=== PATIENT | female | born 1965 | race Hispanic/Latino ===

== ENCOUNTER 2017-05-02 12:23 | Emergency (ER) | payer MEDICAID ==
[~2017-05-02 12:23] MED LIST: ASPI-1005 PO; BACL10TA PO; FURO20TA4 PO; GLIP10TA9 PO; HYDR-4068 PO; LACT10SO PO; LISI10TA7 PO; METF10004 PO; METO-391 PO; PIOG45TA17 PO; PRAV40TA3 PO; TICA90TA PO
[2017-09-14] MEDS ORDERED: LEVO500T89 PO (10:08)
[2017-09-14] MEDS ORDERED: SULF1TAB42 PO (10:08)
[2017-09-14] MEDS ORDERED: GABA-318 PO (10:09)
== END 2017-05-02 13:18 | disposition home or self-care (01) ==
LOC: EDH 12:23
DX: T46.4X1A Poisoning by angiotensin-converting-enzyme inhibitors, accidental (unintentional), initial encounter (principal); I10 Essential (primary) hypertension; M19.90 Unspecified osteoarthritis, unspecified site; E11.9 Type 2 diabetes mellitus without complications; Z88.6 Allergy status to analgesic agent; Z88.0 Allergy status to penicillin; Z79.899 Other long term (current) drug therapy; Y92.89 Other specified places as the place of occurrence of the external cause

== ENCOUNTER → 2017-08-25 | Outpatient (CLI) | payer MEDICAID ==
[~2017-08-25] MED LIST changes: +GABA-318 PO; +LEVO500T89 PO; -PIOG45TA17 PO; +PIOG45TA64 PO; +SULF1TAB42 PO
[2017-08-25 13:02] LABS: CREATININE 0.8 mg/dL (0.5-1.5); GLOMERULAR FILTR. RATE CALC 80 mL/min (>60); UREA NITROGEN, BLOOD 8 mg/dL (7-18)
[2017-08-25 13:23] LABS: CRP QUANTITATIVE < 2.00 mg/L (0.00-9.0)
[2017-08-25 13:29] VITALS: BP 136/73
== END | disposition home or self-care (01) ==
LOC: WHH 10:00
PROVIDERS: ATTEND Surgery
DX: E11.69 Type 2 diabetes mellitus with other specified complication (principal); M86.171 Other acute osteomyelitis, right ankle and foot; I10 Essential (primary) hypertension; E11.51 Type 2 diabetes mellitus with diabetic peripheral angiopathy without gangrene; M19.90 Unspecified osteoarthritis, unspecified site; E78.5 Hyperlipidemia, unspecified
CPT/HCPCS: 36415; 82565; 82948; 84520; 85651; 86140; 99205

== ENCOUNTER → 2017-09-08 | Outpatient (CLI) | payer MEDICAID ==
[2017-09-08 13:01] VITALS: BP 176/77
== END | disposition home or self-care (01) ==
LOC: WHH 09:15
PROVIDERS: ATTEND Surgery
DX: E11.69 Type 2 diabetes mellitus with other specified complication (principal); M86.171 Other acute osteomyelitis, right ankle and foot; I10 Essential (primary) hypertension; E11.51 Type 2 diabetes mellitus with diabetic peripheral angiopathy without gangrene; M19.90 Unspecified osteoarthritis, unspecified site; E78.5 Hyperlipidemia, unspecified
CPT/HCPCS: 82948; 99214

== ENCOUNTER 2017-09-22 05:57 | Day surgery (SDC) | payer MEDICAID ==
[2017-09-14 09:05] LABS: BASOPHILS % (AUTO) 0.6 % (0.0-5.0); HEMATOCRIT 36.1 % (36-48); LYMPHOCYTES % (AUTO) 30.4 % (21.0-51.0); MEAN CORPUSCULAR HEMOGLOBIN 32.6 pg (27.0-33.0); MEAN CORPUSCULAR HGB CONC 35.1 g/dL (32.0-36.0); MEAN CORPUSCULAR VOLUME 92.8 fL (79-99); NUCLEATED RED BLOOD CELLS 0.1 % (0.0-0.19); PLATELET COUNT (AUTO) 220 K/uL (130-400); RED BLOOD CELL COUNT(AUTO) 3.89 MIL/uL (4.00-5.50); RED CELL DISTRIBUTION WIDTH 13.9 % (11.0-15.5); WHITE BLOOD COUNT (AUTO) 6.6 K/uL (4.8-10.8)
[2017-09-14 09:14] LABS: POTASSIUM 4.7 mmol/L (3.5-5.1)
[2017-09-14 09:28] LABS: APPEARANCE,URINE Clear (CLEAR); BILIRUBIN,URINE Negative (NEGATIVE); COLOR,URINE Yellow (YELLOW); GLUCOSE, URINE (UA) Negative (NEGATIVE); INR 1.02 (0.85-1.15); KETONES,URINE Negative (NEGATIVE); LEUKOCYTE ESTERASE ,URINE Negative (NEGATIVE); NITRATE,URINE Negative (NEGATIVE); OCCULT BLOOD,URINE Negative (NEGATIVE); PARTIAL THROMBOPLASTIN TIME 26.4 SEC (26.3-35.5); PH,URINE 6.5 (5.0-8.0); PROTEIN,URINE Trace (NEGATIVE); PROTHROMBIN TIME 10.7 SEC (9.6-11.6); UROBILINOGEN,URINE 0.2 mg/dL (0.2-1.0)
[2017-09-14 09:45] VITALS: BP 160/82
[~2017-09-22] VITALS: Ht 149.9 cm; Wt 58.2 kg
[2017-09-22] VITALS (21 sets, daily range): BP systolic 121–179; BP diastolic 45–89
[~2017-09-22 05:57] MED LIST changes: -BACL10TA PO; -FURO20TA4 PO; -GLIP10TA9 PO; -LACT10SO PO; -METO-391 PO; -PIOG45TA64 PO; +SODIUM CHLORIDE 0.9% 1000ML 0 ML IV ONE
[2017-09-22] MEDS ORDERED: LIDOCAINE HCL 2% 20ML ONE (07:17)
[2017-09-22] MEDS ORDERED: NITROGLYCERIN 5 MG/ML 10 ML VIAL IV ONE (07:17)
[2017-09-22] MEDS ORDERED: ISOVUE-300 100 ML VIAL IV ONE (07:17)
[2017-09-22] MEDS ORDERED: HEPARIN SODIUM 1000UNIT/ML 10ML VIAL ONE (07:17)
[2017-09-22] MEDS ORDERED: SODIUM CHLORIDE 0.9% 1000ML 1,000 ML IV ONE (07:43)
[2017-09-22] MEDS ORDERED: MIDAZOLAM HCL 1 MG/ML 2ML VIAL ONE (07:48)
[2017-09-22] MEDS ORDERED: FENTANYL CITRATE PF 50 MCG/1 ML 2ML VIAL ONE (07:48)
[2017-09-22] MEDS ORDERED: LABETALOL HCL 5 MG/ML 20ML VIAL IV ONE (08:15)
[2017-09-22] MEDS ORDERED: PROTAMINE SULFATE 10 MG/ML 25ML VIAL IV ONE (09:14)
[2017-09-22] MEDS ORDERED: SODIUM CHLORIDE 0.9% 1000ML 1,000 ML IV SCH (09:16)
[2017-09-22] MEDS ORDERED: HYDRALAZINE HCL 20 MG/ML VIAL IV PRN (09:30)
[2017-09-22] MEDS ORDERED: METOPROLOL TARTRATE 1 MG/ML 5ML VIAL IV PRN (09:30)
[2017-09-22] MEDS ORDERED: GLUCAGON 1MG KIT 1 MG ML IM PRN (09:30)
[2017-09-22] MEDS ORDERED: DEXTROSE 50%-WATER 50 ML DISP.SYRIN IV PRN (09:30)
[2017-09-22] MEDS ORDERED: NITROGLYCERIN 0.4 MG SL TAB SL PRN (09:30)
[2017-09-22] MEDS ORDERED: INSULIN HUMULIN R 100 UNIT/ML 3ML SQ SCH (11:30)
[2017-09-22] MEDS ORDERED: ACETAMINOPHEN 325 MG TAB ONE (11:36)
[2017-09-22] MEDS ORDERED: TICAGRELOR 90 MG TABLET PO SCH (21:00)
== END 2017-09-22 15:30 | disposition home or self-care (01) ==
LOC: DAH 05:57
PROVIDERS: ATTEND Internal Medicine Cardiovascular Disease
DX: I70.213 Atherosclerosis of native arteries of extremities with intermittent claudication, bilateral legs (principal); I25.10 Atherosclerotic heart disease of native coronary artery without angina pectoris; J44.9 Chronic obstructive pulmonary disease, unspecified; E11.40 Type 2 diabetes mellitus with diabetic neuropathy, unspecified; I10 Essential (primary) hypertension; Z95.5 Presence of coronary angioplasty implant and graft; M19.90 Unspecified osteoarthritis, unspecified site; Z90.49 Acquired absence of other specified parts of digestive tract
CPT/HCPCS: 36415; 37221; 37226; 71045; 75625; 75710; 75774; 80048; 81003; 82948 ×2; 85025; 85347; 85610; 85730; 93005; A4606; C1725 ×2; C1769 ×2; C1876 ×2; C1887; C1893; C1894 ×2; J0360; J1644; J2720; J3490 ×3; J7030; Q9967; 37223; 75716; J2250; J3010

== ENCOUNTER 2018-05-04 21:55 | Inpatient (IN) | payer MEDICAID | END 2018-05-20 16:44 | LOC: EDH 21:55 → 2CH 21:56 → 2BH 05-07 16:40 → 2DH 05-17 15:12 → 2CV 05-05 11:44 | PROC: 4A023N7 Measurement of Cardiac Sampling and Pressure, Left Heart, Percutaneous Approach (ICD-10-PCS; principal; 2018-05-05 10:25) | PROC: B2111ZZ Fluoroscopy of Multiple Coronary Arteries using Low Osmolar Contrast (ICD-10-PCS; 2018-05-05 10:25) | PROC: 5A02210 Assistance with Cardiac Output using Balloon Pump, Continuous (ICD-10-PCS; 2018-05-05 10:25) | PROC: B2151ZZ Fluoroscopy of Left Heart using Low Osmolar Contrast (ICD-10-PCS; 2018-05-05 10:25) | PROC: 02100Z9 Bypass Coronary Artery, One Artery from Left Internal Mammary, Open Approach (ICD-10-PCS; 2018-05-05 10:25) | PROC: 021109W Bypass Coronary Artery, Two Arteries from Aorta with Autologous Venous Tissue, Open Approach (ICD-10-PCS; 2018-05-05 10:25) | PROC: 06BQ4ZZ Excision of Left Saphenous Vein, Percutaneous Endoscopic Approach (ICD-10-PCS; 2018-05-05 10:25) | DX: I21.4 Non-ST elevation (NSTEMI) myocardial infarction (principal); J96.00 Acute respiratory failure, unspecified whether with hypoxia or hypercapnia; I50.23 Acute on chronic systolic (congestive) heart failure; N17.9 Acute kidney failure, unspecified; E11.22 Type 2 diabetes mellitus with diabetic chronic kidney disease; E11.51 Type 2 diabetes mellitus with diabetic peripheral angiopathy without gangrene; E66.01 Morbid (severe) obesity due to excess calories; E78.5 Hyperlipidemia, unspecified; F17.200 Nicotine dependence, unspecified, uncomplicated; I12.9 Hypertensive chronic kidney disease with stage 1 through stage 4 chronic kidney disease, or unspecified chronic kidney disease; N18.9 Chronic kidney disease, unspecified; D62 Acute posthemorrhagic anemia ==

== ENCOUNTER 2018-05-30 10:03 | Inpatient (IN) | payer MEDICAID | END 2018-06-02 19:00 | disposition home or self-care (01) | LOC: EDH 10:03 → EDHIP 10:04 → 2DH 05-31 16:33 | DX: I25.10 Atherosclerotic heart disease of native coronary artery without angina pectoris (principal); I50.23 Acute on chronic systolic (congestive) heart failure; E11.22 Type 2 diabetes mellitus with diabetic chronic kidney disease; E11.51 Type 2 diabetes mellitus with diabetic peripheral angiopathy without gangrene; I13.0 Hypertensive heart and chronic kidney disease with heart failure and stage 1 through stage 4 chronic kidney disease, or unspecified chronic kidney disease; Z86.74 Personal history of sudden cardiac arrest; E83.42 Hypomagnesemia; Z95.1 Presence of aortocoronary bypass graft; I69.351 Hemiplegia and hemiparesis following cerebral infarction affecting right dominant side; R53.81 Other malaise; R79.1 Abnormal coagulation profile; N18.9 Chronic kidney disease, unspecified; Z72.0 Tobacco use ==

== ENCOUNTER 2018-12-04 13:13 | Emergency (ER) | payer MEDICAID ==
[~2018-12-04 13:13] MED LIST changes: +AEC81 PO; -ASPI-1005 PO; +ATOR10 PO; +CARV3.12 PO; +CLOP75TA32 PO; +DOXY100C40 PO; +FURO40TA7 PO; -GABA-318 PO; +GABA600T10 PO; +ISOS60TA4 PO; -LEVO500T89 PO; -LISI10TA7 PO; +MAGN400T53 PO; -METF10004 PO; +Nitroglycerin 0.4MG Sl Tab SL; +POTA10CA44 PO; -PRAV40TA3 PO; -SODIUM CHLORIDE 0.9% 1000ML 0 ML IV ONE; +SPIR25TA6 PO; -SULF1TAB42 PO
== END 2018-12-04 14:45 | disposition home or self-care (01) ==
LOC: EDH 13:13
DX: M85.632 Other cyst of bone, left forearm (principal); E11.9 Type 2 diabetes mellitus without complications; I10 Essential (primary) hypertension; M19.90 Unspecified osteoarthritis, unspecified site; E78.5 Hyperlipidemia, unspecified; Z95.1 Presence of aortocoronary bypass graft; Z90.49 Acquired absence of other specified parts of digestive tract; Z98.890 Other specified postprocedural states; Z87.891 Personal history of nicotine dependence; Z88.0 Allergy status to penicillin; Z88.6 Allergy status to analgesic agent; Z88.5 Allergy status to narcotic agent; Z90.710 Acquired absence of both cervix and uterus

== ENCOUNTER 2020-09-06 21:54 | Inpatient (IN) | payer MEDICAID ==
[~2020-09-06] VITALS: Ht 149.9 cm; Wt 63.0 kg
[~2020-09-06 21:54] MED LIST changes: -ISOS60TA4 PO; +ISOS60TA77 PO
[2020-09-06] MEDS ORDERED: METOCLOPRAMIDE 10 MG/2 ML VIAL ONE (22:21)
[2020-09-06] MEDS ORDERED: FUROSEMIDE 10 MG/ML 4ML VIAL ONE (22:22)
[2020-09-06] MEDS ORDERED: FAMOTIDINE/PF 20 MG/2 ML VIAL IV ONE (22:22)
[2020-09-06] MEDS ORDERED: ONDANSETRON HCL 4 MG/2 ML VIAL ONE (22:22)
[2020-09-06 22:31] LABS: ABG BASE EXCESS -4.3 mmol/L (-2.0-3.0); ABG HCO3 19.1 mmol/L (21.0-28.0); ABG OXYGEN SATURATION 97.1 % (95.0-99.0); ABG PCO2 31 mmHg (32-45)
[2020-09-06 22:56] LABS: BASOPHILS % (AUTO) 0.7 % (0.0-5.0); EOSINOPHILS % (AUTO) 1.5 % (0.0-8.0); HEMATOCRIT 34.7 % (36-48); LYMPHOCYTES % (AUTO) 15.3 % (21.0-51.0); MEAN CORPUSCULAR HEMOGLOBIN 24.2 pg (27.0-33.0); MEAN CORPUSCULAR VOLUME 80.7 fL (79-99); MONOCYTES % (AUTO) 5.6 % (3.0-13.0); NEUTROPHILS % (AUTO) 76.6 % (40.0-77.0); PLATELET COUNT (AUTO) 263 K/uL (130-400); RED CELL DISTRIBUTION WIDTH 24.1 % (11.0-15.5); WHITE BLOOD COUNT (AUTO) 7.5 K/uL (4.8-10.8)
[2020-09-06 23:08] LABS: CARBON DIOXIDE 22 mmol/L (21-32); CHLORIDE 109 mmol/L (101-111); GLOMERULAR FILTR. RATE CALC 61 mL/min (>60); GLUCOSE,RANDOM 66 mg/dL (70-105); POTASSIUM 4.1 mmol/L (3.5-5.1); SODIUM SERUM 144 mmol/L (136-145); UREA NITROGEN, BLOOD 18 mg/dL (7-18)
[2020-09-06 23:13] LABS: ALANINE AMINOTRANSFERASE 6 U/L (12-78); ALBUMIN 3.1 g/dL (3.5-5.0); ASPARTATE AMINOTRANSFERASE 20 U/L (10-37); BILIRUBIN,TOTAL 1.2 mg/dL (0.2-1.0); CREATINE KINASE, TOTAL 61 U/L (21-232); TOTAL PROTEIN, SERUM 7.9 g/dL (6.0-8.3)
[2020-09-06 23:14] LABS: LIPASE < 50 U/L (114-286)
[2020-09-06 23:23] LABS: B-TYPE NATRIURETIC PEPTIDE > 5000 pg/mL (0-100)
[2020-09-07] MEDS ORDERED: FUROSEMIDE 10 MG/ML 4ML VIAL ONE (00:02)
[2020-09-07] MEDS ORDERED: DEXTROSE 50%-WATER 50 ML DISP.SYRIN IV ONE ×2 (00:03→04:39)
[2020-09-07 00:12] LABS: INR 1.37 (0.85-1.15); PROTHROMBIN TIME 14.5 SEC (9.6-11.6)
[2020-09-07 00:13] LABS: PARTIAL THROMBOPLASTIN TIME 25.8 SEC (26.3-35.5)
[2020-09-07 00:31] LABS: APPEARANCE,URINE Clear (CLEAR); BILIRUBIN,URINE Negative (NEGATIVE); COLOR,URINE Yellow (YELLOW); GLUCOSE, URINE (UA) 500 mg/dL (NEGATIVE); KETONES,URINE Negative (NEGATIVE); LEUKOCYTE ESTERASE ,URINE Negative (NEGATIVE); NITRATE,URINE Negative (NEGATIVE); OCCULT BLOOD,URINE Small (NEGATIVE); PH,URINE 6.5 (5.0-8.0); PROTEIN,URINE Negative (NEGATIVE); UROBILINOGEN,URINE 0.2 mg/dL (0.2-1.0)
[2020-09-07 00:38] LABS: BACTERIA,URINE None Seen /HPF (None Seen); RBC,URINE 0-1 /HPF (0-1); SQUAMOUS EPITHELIAL CELL,UR Moderate /HPF (0-2); WBC,URINE None Seen /HPF (0-1)
[2020-09-07] MEDS ORDERED: DEXTROSE 10%-WATER 1,000 ML IV ONE ×2 (00:58→17:51)
[2020-09-07] MEDS ORDERED: ONDANSETRON HCL 4 MG/2 ML VIAL IV PRN (01:15)
[2020-09-07] MEDS ORDERED: POTASSIUM CHLORIDE 20MEQ/100ML 100 ML IV PRN (01:15)
[2020-09-07] MEDS ORDERED: LIDOCAINE HCL-MPF 1% 2ML VIAL IV PRN (01:15)
[2020-09-07] MEDS ORDERED: GLUCAGON 1MG KIT 1 MG ML IM PRN (01:15)
[2020-09-07] MEDS: FUROSEMIDE 10 MG/ML 4ML VIAL IV SCH ×3 (01:15→17:26)
[2020-09-07 06:49] VITALS: BP 137/67
[2020-09-07] MEDS ORDERED: TORS100T16 PO (07:12)
[2020-09-07] MEDS ORDERED: ONDA-104 PO (07:12)
[2020-09-07] MEDS ORDERED: ATOR20TA65 PO (07:12)
[2020-09-07] MEDS ORDERED: ALBUTEROL INHALER PO (07:12)
[2020-09-07] MEDS ORDERED: TICA60TA PO ×2 (07:12)
[2020-09-07] MEDS ORDERED: ISOS30TA92 PO (07:12)
[2020-09-07] MEDS ORDERED: SACU1TAB PO (07:12)
[2020-09-07] MEDS ORDERED: GABA-529 PO (07:12)
[2020-09-07] MEDS ORDERED: EMPA25TA PO (07:12)
[2020-09-07] MEDS ORDERED: AEC81 PO (07:12)
[2020-09-07] MEDS ORDERED: CARV3.12 PO (07:12)
[2020-09-07] MEDS ORDERED: METF-446 PO (07:12)
[2020-09-07 08:10] LABS: HEMATOCRIT 30.8 % (36-48); MEAN CORPUSCULAR HEMOGLOBIN 24.3 pg (27.0-33.0); MEAN CORPUSCULAR HGB CONC 29.9 g/dL (32.0-36.0); MEAN CORPUSCULAR VOLUME 81.5 fL (79-99); PLATELET COUNT (AUTO) 239 K/uL (130-400); RED BLOOD CELL COUNT(AUTO) 3.78 MIL/uL (4.00-5.50); RED CELL DISTRIBUTION WIDTH 23.9 % (11.0-15.5)
[2020-09-07 08:31] VITALS: BP 137/71
[2020-09-07 08:42] LABS: ALBUMIN 2.8 g/dL (3.5-5.0); CREATININE 1.1 mg/dL (0.5-1.5); POTASSIUM 4.1 mmol/L (3.5-5.1); THYROID STIMULATING HORMONE 1.86 uIU/mL (0.36-3.74); TOTAL PROTEIN, SERUM 7.2 g/dL (6.0-8.3)
[2020-09-07 09:06] LABS: B-TYPE NATRIURETIC PEPTIDE > 5000 pg/mL (0-100)
[2020-09-07] MEDS: FAMOTIDINE/PF 20 MG/2 ML VIAL IV SCH ×2 (11:08→22:32)
[2020-09-07 12:23] VITALS: BP 142/80
[2020-09-07] MEDS ORDERED: HYDROMORPHONE 1 MG/1 ML AMP IVP PRN (16:15)
[2020-09-07] MEDS: HYDROMORPHONE HCL 0.5 MG/0.5 ML ML IVP PRN ×2 (16:26→22:30)
[2020-09-07 16:45] VITALS: BP 127/76
[2020-09-07] MEDS ORDERED: DEXTROSE 10%-WATER 1,000 ML IV SCH (18:00)
[2020-09-07 20:21] VITALS: BP 128/63
[2020-09-07] MEDS: TICAGRELOR PO SCH (21:00)
[2020-09-07] MEDS: GABAPENTIN 300 MG CAPSULE PO SCH (22:33)
[2020-09-07] MEDS: CARVEDILOL 3.125 MG TABLET PO SCH (22:36)
[2020-09-07 23:35] VITALS: BP 127/79
[2020-09-08] MEDS: FUROSEMIDE 10 MG/ML 4ML VIAL IV SCH ×2 (02:35→09:12)
[2020-09-08 04:05] VITALS: BP 140/73
[2020-09-08 04:52] LABS: CREATININE 0.9 mg/dL (0.5-1.5); POTASSIUM 4.5 mmol/L (3.5-5.1)
[2020-09-08] MEDS: HYDROMORPHONE HCL 0.5 MG/0.5 ML ML IVP PRN ×4 (05:40→20:26)
[2020-09-08 05:52] LABS: BASOPHILS % (AUTO) 0.4 % (0.0-5.0); HEMATOCRIT 32.2 % (36-48); MEAN CORPUSCULAR HEMOGLOBIN 25.3 pg (27.0-33.0); MEAN CORPUSCULAR HGB CONC 30.7 g/dL (32.0-36.0); MEAN CORPUSCULAR VOLUME 82.1 fL (79-99); MONOCYTES % (AUTO) 6.4 % (3.0-13.0); NEUTROPHILS % (AUTO) 71.8 % (40.0-77.0); PLATELET COUNT (AUTO) 207 K/uL (130-400); RED BLOOD CELL COUNT(AUTO) 3.92 MIL/uL (4.00-5.50); RED CELL DISTRIBUTION WIDTH 24.2 % (11.0-15.5); WHITE BLOOD COUNT (AUTO) 7.2 K/uL (4.8-10.8)
[2020-09-08 06:11] LABS: B-TYPE NATRIURETIC PEPTIDE > 5000 pg/mL (0-100)
[2020-09-08 08:00] VITALS: BP 132/65
[2020-09-08] MEDS: **HM**(Sacubitril/Valsartan (Entresto 24 mg-26 mg Tablet PO SCH (09:00)
[2020-09-08] MEDS: TICAGRELOR 60 MG PO SCH (09:00)
[2020-09-08] MEDS: DEXTROSE 50%-WATER 50 ML DISP.SYRIN IV PRN (09:12)
[2020-09-08] MEDS: CARVEDILOL 3.125 MG TABLET PO SCH ×2 (09:13→20:18)
[2020-09-08] MEDS: GABAPENTIN 300 MG CAPSULE PO SCH ×3 (09:13→20:17)
[2020-09-08] MEDS: ISOSORBIDE MONO 30MG TAB SR PO SCH (09:13)
[2020-09-08] MEDS: FAMOTIDINE/PF 20 MG/2 ML VIAL IV SCH ×2 (09:13→20:17)
[2020-09-08] MEDS: ASPIRIN 81 MG EC TAB PO SCH (09:14)
[2020-09-08] MEDS ORDERED: GABA600T10 PO (09:18)
[2020-09-08 11:55] VITALS: BP 122/67
[2020-09-08 16:30] VITALS: BP 126/54
[2020-09-08] MEDS: TICAGRELOR PO SCH (20:34)
[2020-09-08 20:36] VITALS: BP 131/82
[2020-09-08 23:36] VITALS: BP 123/70
[2020-09-09] VITALS (16 sets, daily range): BP systolic 104–139; BP diastolic 55–68
[2020-09-09] MEDS: HYDROMORPHONE HCL 0.5 MG/0.5 ML ML IVP PRN (03:13)
[2020-09-09 06:21] LABS: BASOPHILS % (AUTO) 0.5 % (0.0-5.0); EOSINOPHILS % (AUTO) 4.1 % (0.0-8.0); HEMATOCRIT 30.3 % (36-48); LYMPHOCYTES % (AUTO) 19.8 % (21.0-51.0); MEAN CORPUSCULAR HEMOGLOBIN 24.7 pg (27.0-33.0); MEAN CORPUSCULAR HGB CONC 30.7 g/dL (32.0-36.0); MEAN CORPUSCULAR VOLUME 80.4 fL (79-99); MONOCYTES % (AUTO) 9.3 % (3.0-13.0); NEUTROPHILS % (AUTO) 66.1 % (40.0-77.0); PLATELET COUNT (AUTO) 205 K/uL (130-400); RED BLOOD CELL COUNT(AUTO) 3.77 MIL/uL (4.00-5.50); RED CELL DISTRIBUTION WIDTH 24.1 % (11.0-15.5); WHITE BLOOD COUNT (AUTO) 5.8 K/uL (4.8-10.8)
[2020-09-09 06:41] LABS: CREATININE 0.9 mg/dL (0.5-1.5); POTASSIUM 3.2 mmol/L (3.5-5.1)
[2020-09-09 06:49] LABS: B-TYPE NATRIURETIC PEPTIDE > 5000 pg/mL (0-100)
[2020-09-09] MEDS: ASPIRIN 81 MG EC TAB PO SCH (08:12)
[2020-09-09] MEDS: FAMOTIDINE/PF 20 MG/2 ML VIAL IV SCH ×2 (08:12→21:02)
[2020-09-09] MEDS: FUROSEMIDE 10 MG/ML 4ML VIAL IV SCH ×2 (08:12→15:11)
[2020-09-09] MEDS: ACETAMINOPHEN 325 MG TAB PO PRN ×3 (08:13→21:04)
[2020-09-09] MEDS: CARVEDILOL 3.125 MG TABLET PO SCH ×2 (08:14→21:02)
[2020-09-09] MEDS: **HM**(Sacubitril/Valsartan (Entresto 24 mg-26 mg Tablet PO SCH (08:14)
[2020-09-09] MEDS: TICAGRELOR 60 MG PO SCH (08:14)
[2020-09-09] MEDS: GABAPENTIN 300 MG CAPSULE PO SCH ×3 (08:16→21:01)
[2020-09-09] MEDS: ISOSORBIDE MONO 30MG TAB SR PO SCH (08:23)
[2020-09-09] MEDS: ENTRESTO PO SCH ×2 (09:15→21:10)
[2020-09-09] MEDS: SOD FERRIC GLUC COMPLEX/SUC 125 MG in SODIUM CHLORIDE 0.9% 100 ML IV SCH (11:21)
[2020-09-09] MEDS ORDERED: PROPOFOL 10 MG/ML 20ML VIAL IV ONE ×2 (11:53)
[2020-09-09] MEDS ORDERED: COMPOUND IV MISC 1 EACH IVSOLN MISC PRN (12:00)
[2020-09-09] MEDS ORDERED: MORPHINE SULFATE 2 MG/ML 1ML SYG ONE (13:25)
[2020-09-09] MEDS: DEXTROSE 50%-WATER 50 ML DISP.SYRIN IV PRN (16:44)
[2020-09-09] MEDS: TICAGRELOR PO SCH (21:04)
[2020-09-10 03:47] VITALS: BP 126/62
[2020-09-10 03:52] LABS: BASOPHILS % (AUTO) 0.3 % (0.0-5.0); EOSINOPHILS % (AUTO) 3.6 % (0.0-8.0); HEMATOCRIT 31.4 % (36-48); MEAN CORPUSCULAR HEMOGLOBIN 24.7 pg (27.0-33.0); MEAN CORPUSCULAR HGB CONC 30.6 g/dL (32.0-36.0); MEAN CORPUSCULAR VOLUME 80.9 fL (79-99); MONOCYTES % (AUTO) 6.5 % (3.0-13.0); NEUTROPHILS % (AUTO) 71.1 % (40.0-77.0); PLATELET COUNT (AUTO) 189 K/uL (130-400); RED BLOOD CELL COUNT(AUTO) 3.88 MIL/uL (4.00-5.50); RED CELL DISTRIBUTION WIDTH 24.9 % (11.0-15.5); WHITE BLOOD COUNT (AUTO) 6.3 K/uL (4.8-10.8)
[2020-09-10 04:20] LABS: CREATININE 0.9 mg/dL (0.5-1.5)
[2020-09-10 04:22] LABS: B-TYPE NATRIURETIC PEPTIDE > 5000 pg/mL (0-100)
[2020-09-10] MEDS: FUROSEMIDE 10 MG/ML 4ML VIAL IV SCH ×3 (05:49→15:40)
[2020-09-10] MEDS: ACETAMINOPHEN 325 MG TAB PO PRN ×2 (05:49→12:14)
[2020-09-10 08:15] VITALS: BP 122/70
[2020-09-10] MEDS: ENTRESTO PO SCH ×3 (09:00→20:28)
[2020-09-10] MEDS: TICAGRELOR 60 MG PO SCH (09:00)
[2020-09-10] MEDS: GABAPENTIN 300 MG CAPSULE PO SCH ×3 (09:41→20:32)
[2020-09-10] MEDS: ISOSORBIDE MONO 30MG TAB SR PO SCH (09:41)
[2020-09-10] MEDS: ASPIRIN 81 MG EC TAB PO SCH (09:41)
[2020-09-10] MEDS: CARVEDILOL 3.125 MG TABLET PO SCH ×2 (09:42→20:22)
[2020-09-10] MEDS: POTASSIUM CHLORIDE 10% ELIXIR 20 MEQ/15 ML UDCUP PO PRN ×4 (09:42→16:52)
[2020-09-10] MEDS: SOD FERRIC GLUC COMPLEX/SUC 125 MG in SODIUM CHLORIDE 0.9% 100 ML IV SCH (09:43)
[2020-09-10] MEDS: TICAGRELOR PO SCH (09:57)
[2020-09-10] MEDS: FAMOTIDINE 20MG TAB 20 MG TAB PO SCH ×2 (10:41→20:22)
[2020-09-10 12:17] VITALS: BP 119/62
[2020-09-10 16:30] VITALS: BP 117/65
[2020-09-10 16:52] LABS: CREATININE 0.9 mg/dL (0.5-1.5); MAGNESIUM 1.1 mg/dL (1.80-2.40); POTASSIUM 3.9 mmol/L (3.5-5.1)
[2020-09-10] MEDS: MAGNESIUM 2GM PREMIX 50ML 50 ML IV PRN (18:03)
[2020-09-10 19:17] VITALS: BP 117/60
[2020-09-10 23:54] VITALS: BP 95/51
[2020-09-11] MEDS: FUROSEMIDE 10 MG/ML 4ML VIAL IV SCH ×3 (00:48→21:26)
[2020-09-11 03:11] VITALS: BP 103/57
[2020-09-11 06:16] LABS: CREATININE 0.8 mg/dL (0.5-1.5); MAGNESIUM 1.8 mg/dL (1.80-2.40); POTASSIUM 4.6 mmol/L (3.5-5.1)
[2020-09-11] MEDS: MAGNESIUM 2GM PREMIX 50ML 50 ML IV PRN (06:31)
[2020-09-11 06:44] LABS: BASOPHILS % (AUTO) 0.3 % (0.0-5.0); EOSINOPHILS % (AUTO) 4.4 % (0.0-8.0); HEMATOCRIT 34.8 % (36-48); LYMPHOCYTES % (AUTO) 25.7 % (21.0-51.0); MEAN CORPUSCULAR HEMOGLOBIN 24.9 pg (27.0-33.0); MEAN CORPUSCULAR HGB CONC 30.5 g/dL (32.0-36.0); MEAN CORPUSCULAR VOLUME 81.9 fL (79-99); MONOCYTES % (AUTO) 9.1 % (3.0-13.0); NEUTROPHILS % (AUTO) 60.3 % (40.0-77.0); PLATELET COUNT (AUTO) 208 K/uL (130-400); RED BLOOD CELL COUNT(AUTO) 4.25 MIL/uL (4.00-5.50); RED CELL DISTRIBUTION WIDTH 25.5 % (11.0-15.5); WHITE BLOOD COUNT (AUTO) 5.7 K/uL (4.8-10.8)
[2020-09-11] MEDS: ASPIRIN 81 MG EC TAB PO SCH (08:43)
[2020-09-11] MEDS: FAMOTIDINE 20MG TAB 20 MG TAB PO SCH ×2 (08:43→20:32)
[2020-09-11] MEDS: ISOSORBIDE MONO 30MG TAB SR PO SCH (08:43)
[2020-09-11 08:45] VITALS: BP 113/56
[2020-09-11] MEDS: CARVEDILOL 3.125 MG TABLET PO SCH ×2 (08:45→20:31)
[2020-09-11] MEDS: ENTRESTO PO SCH ×2 (08:46→20:46)
[2020-09-11] MEDS: TICAGRELOR 60 MG PO SCH (08:47)
[2020-09-11] MEDS: SOD FERRIC GLUC COMPLEX/SUC 125 MG in SODIUM CHLORIDE 0.9% 100 ML IV SCH (08:47)
[2020-09-11] MEDS: GABAPENTIN 300 MG CAPSULE PO SCH ×3 (08:48→20:46)
[2020-09-11 12:18] VITALS: BP 94/45
[2020-09-11] MEDS ORDERED: LEVOFLOXACIN 750 MG/D5W 150 ML 150 ML IV SCH (14:30)
[2020-09-11] MEDS ORDERED: FUROSEMIDE 10 MG/ML 4ML VIAL IV SCH (15:45)
[2020-09-11 16:59] VITALS: BP 107/55
[2020-09-11] MEDS ORDERED: FUROSEMIDE 40 MG TABLET PO SCH ×2 (17:00→18:00)
[2020-09-11] MEDS ORDERED: PHARMACY COMMUNICATION MISC SCH (18:45)
[2020-09-11 19:19] VITALS: BP 116/67
[2020-09-11] MEDS ORDERED: PEG 3350/NA SULF,BICARB,CL/KCL 4000 ML SOLN PO STA (19:59)
[2020-09-11] MEDS: LEVOFLOXACIN 750 MG/D5W 150 ML 150 ML IV SCH (20:31)
[2020-09-11] MEDS: ACETAMINOPHEN 325 MG TAB PO PRN (21:34)
[2020-09-11 23:12] VITALS: BP 114/59
[2020-09-12] VITALS (19 sets, daily range): BP systolic 94–143; BP diastolic 51–75
[2020-09-12] MEDS: FUROSEMIDE 10 MG/ML 4ML VIAL IV SCH (05:13)
[2020-09-12 05:17] LABS: BASOPHILS % (AUTO) 0.7 % (0.0-5.0); EOSINOPHILS % (AUTO) 5.1 % (0.0-8.0); HEMATOCRIT 32.5 % (36-48); LYMPHOCYTES % (AUTO) 22.9 % (21.0-51.0); MEAN CORPUSCULAR HEMOGLOBIN 24.9 pg (27.0-33.0); MEAN CORPUSCULAR HGB CONC 30.8 g/dL (32.0-36.0); MONOCYTES % (AUTO) 9.7 % (3.0-13.0); NEUTROPHILS % (AUTO) 61.4 % (40.0-77.0); PLATELET COUNT (AUTO) 207 K/uL (130-400); RED BLOOD CELL COUNT(AUTO) 4.01 MIL/uL (4.00-5.50); RED CELL DISTRIBUTION WIDTH 25.3 % (11.0-15.5); WHITE BLOOD COUNT (AUTO) 5.5 K/uL (4.8-10.8)
[2020-09-12 05:20] LABS: CREATININE 0.9 mg/dL (0.5-1.5); MAGNESIUM 1.9 mg/dL (1.80-2.40); POTASSIUM 3.5 mmol/L (3.5-5.1)
[2020-09-12 05:29] LABS: B-TYPE NATRIURETIC PEPTIDE > 5000 pg/mL (0-100)
[2020-09-12 05:32] LABS: INR 1.32 (0.85-1.15)
[2020-09-12] MEDS ORDERED: LIDOCAINE HCL-MPF 2% 5ML VIAL ONE (06:55)
[2020-09-12] MEDS ORDERED: PROPOFOL 10 MG/ML 20ML VIAL IV ONE (06:55)
[2020-09-12] MEDS: ASPIRIN 81 MG EC TAB PO SCH ×2 (09:00→09:31)
[2020-09-12] MEDS ORDERED: BUMETANIDE 0.25 MG/ML 10 ML 80 ML IV SCH (09:00)
[2020-09-12] MEDS: POTASSIUM CHLORIDE 10 MEQ/TAB.SA PO SCH ×2 (09:15→21:00)
[2020-09-12] MEDS: GABAPENTIN 300 MG CAPSULE PO SCH ×3 (09:30→20:57)
[2020-09-12] MEDS: MAGNESIUM 2GM PREMIX 50ML 50 ML IV PRN (09:30)
[2020-09-12] MEDS: FAMOTIDINE 20MG TAB 20 MG TAB PO SCH ×2 (09:30→20:58)
[2020-09-12] MEDS: CARVEDILOL 3.125 MG TABLET PO SCH ×2 (09:31→20:53)
[2020-09-12] MEDS: ISOSORBIDE MONO 30MG TAB SR PO SCH (09:31)
[2020-09-12] MEDS: SPIRONOLACTONE 25 MG TAB PO SCH (09:33)
[2020-09-12] MEDS: ENTRESTO PO SCH ×2 (09:40→20:57)
[2020-09-12] MEDS ORDERED: COMPOUND IV MISC 1 EACH IVSOLN MISC PRN (10:00)
[2020-09-12] MEDS: ACETAMINOPHEN 325 MG TAB PO PRN (12:25)
[2020-09-12] MEDS: MILRINONE-D5W 20 MG/100 ML 100 ML IV SCH (16:03)
[2020-09-12] MEDS: LEVOFLOXACIN 750 MG/D5W 150 ML 150 ML IV SCH (20:52)
[2020-09-13 04:08] VITALS: BP 105/58
[2020-09-13 06:22] LABS: BASOPHILS % (AUTO) 0.4 % (0.0-5.0); EOSINOPHILS % (AUTO) 4.3 % (0.0-8.0); HEMATOCRIT 27.8 % (36-48); LYMPHOCYTES % (AUTO) 23.3 % (21.0-51.0); MEAN CORPUSCULAR HEMOGLOBIN 24.7 pg (27.0-33.0); MEAN CORPUSCULAR HGB CONC 30.9 g/dL (32.0-36.0); MEAN CORPUSCULAR VOLUME 79.9 fL (79-99); MONOCYTES % (AUTO) 10.5 % (3.0-13.0); NEUTROPHILS % (AUTO) 61.3 % (40.0-77.0); PLATELET COUNT (AUTO) 207 K/uL (130-400); RED BLOOD CELL COUNT(AUTO) 3.48 MIL/uL (4.00-5.50); RED CELL DISTRIBUTION WIDTH 25.3 % (11.0-15.5); WHITE BLOOD COUNT (AUTO) 5.2 K/uL (4.8-10.8)
[2020-09-13 07:00] LABS: CREATININE 1.1 mg/dL (0.5-1.5); MAGNESIUM 2.2 mg/dL (1.80-2.40); POTASSIUM 3.4 mmol/L (3.5-5.1)
[2020-09-13 08:02] VITALS: BP 98/53
[2020-09-13] MEDS: SPIRONOLACTONE 25 MG TAB PO SCH (08:25)
[2020-09-13] MEDS: ASPIRIN 81 MG EC TAB PO SCH (08:26)
[2020-09-13] MEDS: ISOSORBIDE MONO 30MG TAB SR PO SCH (08:26)
[2020-09-13] MEDS: FAMOTIDINE 20MG TAB 20 MG TAB PO SCH ×2 (08:26→21:37)
[2020-09-13] MEDS: POTASSIUM CHLORIDE 20 MEQ ERTAB PO PRN (08:27)
[2020-09-13] MEDS: CARVEDILOL 3.125 MG TABLET PO SCH ×2 (08:27→21:40)
[2020-09-13] MEDS: ENTRESTO PO SCH ×2 (08:28→21:41)
[2020-09-13] MEDS: POTASSIUM CHLORIDE 10 MEQ/TAB.SA PO SCH ×2 (08:28→21:52)
[2020-09-13] MEDS: TICAGRELOR 60 MG PO SCH (08:28)
[2020-09-13] MEDS: GABAPENTIN 300 MG CAPSULE PO SCH ×3 (08:29→21:38)
[2020-09-13] MEDS ORDERED: DIGOXIN 125 MCG TABLET PO SCH (09:00)
[2020-09-13 12:06] VITALS: BP 90/48
[2020-09-13 13:46] LABS: ALBUMIN 2.4 g/dL (3.5-5.0); BILIRUBIN,DIRECT 0.2 mg/dL (0.0-0.3); BILIRUBIN,TOTAL 0.7 mg/dL (0.2-1.0); CREATININE 1.1 mg/dL (0.5-1.5); POTASSIUM 3.6 mmol/L (3.5-5.1); TOTAL PROTEIN, SERUM 6.4 g/dL (6.0-8.3)
[2020-09-13 16:00] VITALS: BP 117/60
[2020-09-13 20:00] VITALS: BP 120/68
[2020-09-13] MEDS: TICAGRELOR PO SCH (21:42)
[2020-09-13 23:33] VITALS: BP 100/55
[2020-09-14] MEDS: MILRINONE-D5W 20 MG/100 ML 100 ML IV SCH (01:58)
[2020-09-14] MEDS: ACETAMINOPHEN 325 MG TAB PO PRN ×2 (02:06→14:10)
[2020-09-14 03:38] VITALS: BP 104/55
[2020-09-14 05:49] LABS: CREATININE 1.2 mg/dL (0.5-1.5); MAGNESIUM 1.7 mg/dL (1.80-2.40); POTASSIUM 3.6 mmol/L (3.5-5.1)
[2020-09-14] MEDS: ENTRESTO PO SCH ×2 (07:52→21:26)
[2020-09-14] MEDS: TICAGRELOR 60 MG PO SCH (07:52)
[2020-09-14] MEDS: GABAPENTIN 300 MG CAPSULE PO SCH ×3 (07:52→21:22)
[2020-09-14 08:02] VITALS: BP 117/61
[2020-09-14] MEDS: ASPIRIN 81 MG EC TAB PO SCH (08:29)
[2020-09-14] MEDS: POTASSIUM CHLORIDE 10 MEQ/TAB.SA PO SCH ×2 (08:30→21:23)
[2020-09-14] MEDS: POTASSIUM CHLORIDE 20 MEQ ERTAB PO PRN ×2 (08:30→18:11)
[2020-09-14] MEDS: FAMOTIDINE 20MG TAB 20 MG TAB PO SCH ×2 (08:30→21:23)
[2020-09-14] MEDS: SPIRONOLACTONE 25 MG TAB PO SCH (08:31)
[2020-09-14] MEDS: CARVEDILOL 3.125 MG TABLET PO SCH ×2 (08:31→21:25)
[2020-09-14] MEDS: MAGNESIUM 2GM PREMIX 50ML 50 ML IV PRN (08:32)
[2020-09-14] MEDS: ISOSORBIDE MONO 30MG TAB SR PO SCH (08:32)
[2020-09-14] MEDS: IRON SUCROSE COMPLEX 100 MG in SODIUM CHLORIDE 0.9% 50 ML IV SCH (09:00)
[2020-09-14] MEDS ORDERED: COMPOUND IV REFRIGERATED 1 EACH IVSOLN MISC PRN (09:15)
[2020-09-14 11:24] VITALS: BP 119/69
[2020-09-14 12:45] LABS: BASOPHILS % (AUTO) 0.5 % (0.0-5.0); EOSINOPHILS % (AUTO) 4.7 % (0.0-8.0); HEMATOCRIT 32.1 % (36-48); LYMPHOCYTES % (AUTO) 20.2 % (21.0-51.0); MEAN CORPUSCULAR HEMOGLOBIN 24.9 pg (27.0-33.0); MEAN CORPUSCULAR HGB CONC 30.8 g/dL (32.0-36.0); MEAN CORPUSCULAR VOLUME 80.9 fL (79-99); MONOCYTES % (AUTO) 9.2 % (3.0-13.0); PLATELET COUNT (AUTO) 237 K/uL (130-400); RED BLOOD CELL COUNT(AUTO) 3.97 MIL/uL (4.00-5.50); RED CELL DISTRIBUTION WIDTH 25.9 % (11.0-15.5); WHITE BLOOD COUNT (AUTO) 5.6 K/uL (4.8-10.8)
[2020-09-14 16:00] VITALS: BP 109/59
[2020-09-14] MEDS: DIGOXIN 125 MCG TABLET PO SCH (18:11)
[2020-09-14 19:55] VITALS: BP 131/66
[2020-09-14] MEDS: LEVOFLOXACIN 750 MG TABLET PO SCH (21:24)
[2020-09-14] MEDS: TICAGRELOR PO SCH (21:27)
[2020-09-14 23:45] VITALS: BP 109/53
[2020-09-15 03:53] VITALS: BP 119/65
[2020-09-15 04:35] LABS: CREATININE 1.3 mg/dL (0.5-1.5); MAGNESIUM 1.9 mg/dL (1.80-2.40)
[2020-09-15 07:00] VITALS: BP 123/63
[2020-09-15] MEDS ORDERED: SPIR25TA PO (08:38)
[2020-09-15] MEDS ORDERED: SACU1TAB PO (08:38)
[2020-09-15] MEDS ORDERED: METO2.5T2 PO (08:38)
[2020-09-15] MEDS ORDERED: DIGO125T71 PO (08:38)
[2020-09-15] MEDS: ENTRESTO PO SCH ×2 (09:00→20:22)
[2020-09-15] MEDS: MAGNESIUM 2GM PREMIX 50ML 50 ML IV PRN (09:05)
[2020-09-15] MEDS: IRON SUCROSE COMPLEX 100 MG in SODIUM CHLORIDE 0.9% 50 ML IV SCH (09:05)
[2020-09-15] MEDS: ASPIRIN 81 MG EC TAB PO SCH (09:05)
[2020-09-15] MEDS: SPIRONOLACTONE 25 MG TAB PO SCH (09:06)
[2020-09-15] MEDS: ISOSORBIDE MONO 30MG TAB SR PO SCH (09:06)
[2020-09-15] MEDS: FAMOTIDINE 20MG TAB 20 MG TAB PO SCH ×2 (09:06→20:20)
[2020-09-15] MEDS: GABAPENTIN 300 MG CAPSULE PO SCH ×3 (09:06→21:00)
[2020-09-15] MEDS: CARVEDILOL 3.125 MG TABLET PO SCH ×2 (09:06→20:20)
[2020-09-15] MEDS: POTASSIUM CHLORIDE 10 MEQ/TAB.SA PO SCH ×2 (09:07→20:20)
[2020-09-15] MEDS: LEVOFLOXACIN 750 MG TABLET PO SCH (09:07)
[2020-09-15] MEDS: TICAGRELOR 60 MG PO SCH (09:08)
[2020-09-15] MEDS ORDERED: DEXTROSE 5%-WATER 1,000 ML IV SCH (09:45)
[2020-09-15 11:00] VITALS: BP 102/51
[2020-09-15 16:00] VITALS: BP 107/59
[2020-09-15] MEDS: DIGOXIN 125 MCG TABLET PO SCH (17:13)
[2020-09-15 19:07] VITALS: BP 112/60
[2020-09-15] MEDS: TICAGRELOR PO SCH (20:23)
[2020-09-15 23:40] VITALS: BP 108/60
[2020-09-16 03:54] VITALS: BP 115/58
[2020-09-16 05:23] LABS: BASOPHILS % (AUTO) 0.5 % (0.0-5.0); EOSINOPHILS % (AUTO) 5.2 % (0.0-8.0); HEMATOCRIT 31.5 % (36-48); LYMPHOCYTES % (AUTO) 22.1 % (21.0-51.0); MEAN CORPUSCULAR HEMOGLOBIN 24.8 pg (27.0-33.0); MEAN CORPUSCULAR HGB CONC 30.5 g/dL (32.0-36.0); MEAN CORPUSCULAR VOLUME 81.4 fL (79-99); MONOCYTES % (AUTO) 9.8 % (3.0-13.0); NEUTROPHILS % (AUTO) 61.9 % (40.0-77.0); PLATELET COUNT (AUTO) 210 K/uL (130-400); RED BLOOD CELL COUNT(AUTO) 3.87 MIL/uL (4.00-5.50); RED CELL DISTRIBUTION WIDTH 26.2 % (11.0-15.5); WHITE BLOOD COUNT (AUTO) 6.1 K/uL (4.8-10.8)
[2020-09-16 05:42] LABS: ALBUMIN 2.5 g/dL (3.5-5.0); BILIRUBIN,TOTAL 0.6 mg/dL (0.2-1.0); CREATININE 1.1 mg/dL (0.5-1.5); POTASSIUM 3.9 mmol/L (3.5-5.1); TOTAL PROTEIN, SERUM 6.8 g/dL (6.0-8.3)
[2020-09-16] MEDS ORDERED: LEVO750T46 PO (07:51)
[2020-09-16 08:00] VITALS: BP 115/60
[2020-09-16] MEDS: ENTRESTO PO SCH (09:00)
[2020-09-16] MEDS: IRON SUCROSE COMPLEX 100 MG in SODIUM CHLORIDE 0.9% 50 ML IV SCH (09:27)
[2020-09-16] MEDS: ASPIRIN 81 MG EC TAB PO SCH (09:28)
[2020-09-16] MEDS: SPIRONOLACTONE 25 MG TAB PO SCH (09:28)
[2020-09-16] MEDS: CARVEDILOL 3.125 MG TABLET PO SCH (09:29)
[2020-09-16] MEDS: TICAGRELOR 60 MG PO SCH (09:30)
[2020-09-16] MEDS: LEVOFLOXACIN 750 MG TABLET PO SCH (09:34)
[2020-09-16] MEDS: FAMOTIDINE 20MG TAB 20 MG TAB PO SCH (09:34)
[2020-09-16] MEDS: ISOSORBIDE MONO 30MG TAB SR PO SCH (09:34)
[2020-09-16] MEDS: GABAPENTIN 300 MG CAPSULE PO SCH ×2 (09:39→14:58)
[2020-09-16] MEDS: POTASSIUM CHLORIDE 10 MEQ/TAB.SA PO SCH (09:39)
[2020-09-16 12:00] VITALS: BP 107/60
[2020-09-16] MEDS ORDERED: BALSAM PERU/CASTOR OIL 60 GM TUBE TP SCH (14:00)
[2020-09-16] MEDS: ACETAMINOPHEN 325 MG TAB PO PRN (15:00)
[2020-09-16] MEDS: DIGOXIN 125 MCG TABLET PO SCH (16:35)
== END 2020-09-16 16:50 | disposition home or self-care (01) | DRG 133 ==
LOC: EDH 21:54 → OBSVTOIN 21:55 → EDHIP 21:55 → 4AH 09-07 06:19 → 4DH 09-08 17:54
PROVIDERS: ADMIT Internal Medicine; ATTEND Internal Medicine
PROC: 0DB68ZX Excision of Stomach, Via Natural or Artificial Opening Endoscopic, Diagnostic (ICD-10-PCS; 2020-09-09)
PROC: 0D758ZZ Dilation of Esophagus, Via Natural or Artificial Opening Endoscopic (ICD-10-PCS; 2020-09-09)
PROC: 0DBM8ZZ Excision of Descending Colon, Via Natural or Artificial Opening Endoscopic (ICD-10-PCS; principal; 2020-09-12)
PROC: 0DBP8ZZ Excision of Rectum, Via Natural or Artificial Opening Endoscopic (ICD-10-PCS; 2020-09-12)
PROC: 02HV33Z Insertion of Infusion Device into Superior Vena Cava, Percutaneous Approach (ICD-10-PCS; 2020-09-12)
DX: J96.01 Acute respiratory failure with hypoxia (principal); I50.43 Acute on chronic combined systolic (congestive) and diastolic (congestive) heart failure; E11.621 Type 2 diabetes mellitus with foot ulcer; E11.51 Type 2 diabetes mellitus with diabetic peripheral angiopathy without gangrene; E11.649 Type 2 diabetes mellitus with hypoglycemia without coma; D62 Acute posthemorrhagic anemia; I11.0 Hypertensive heart disease with heart failure; T87.89 Other complications of amputation stump; K57.32 Diverticulitis of large intestine without perforation or abscess without bleeding; E66.01 Morbid (severe) obesity due to excess calories; L03.116 Cellulitis of left lower limb; I25.5 Ischemic cardiomyopathy; K57.90 Diverticulosis of intestine, part unspecified, without perforation or abscess without bleeding; R13.10 Dysphagia, unspecified; R18.8 Other ascites; D50.9 Iron deficiency anemia, unspecified; B96.5 Pseudomonas (aeruginosa) (mallei) (pseudomallei) as the cause of diseases classified elsewhere; E11.69 Type 2 diabetes mellitus with other specified complication; E78.5 Hyperlipidemia, unspecified; G81.91 Hemiplegia, unspecified affecting right dominant side; G89.4 Chronic pain syndrome; I25.10 Atherosclerotic heart disease of native coronary artery without angina pectoris; J98.11 Atelectasis; K29.70 Gastritis, unspecified, without bleeding; K62.1 Rectal polyp; K63.5 Polyp of colon; K64.8 Other hemorrhoids; L97.529 Non-pressure chronic ulcer of other part of left foot with unspecified severity; M19.90 Unspecified osteoarthritis, unspecified site; M86.8X7 Other osteomyelitis, ankle and foot; Z20.822 Contact with and (suspected) exposure to COVID-19; R53.81 Other malaise; Y83.5 Amputation of limb(s) as the cause of abnormal reaction of the patient, or of later complication, without mention of misadventure at the time of the procedure; I25.2 Old myocardial infarction; Y92.89 Other specified places as the place of occurrence of the external cause; Z68.28 Body mass index [BMI] 28.0-28.9, adult; Z74.01 Bed confinement status; Z88.0 Allergy status to penicillin; Z88.8 Allergy status to other drugs, medicaments and biological substances; Z95.5 Presence of coronary angioplasty implant and graft; Z95.1 Presence of aortocoronary bypass graft; Z87.891 Personal history of nicotine dependence; Z89.412 Acquired absence of left great toe; Z79.899 Other long term (current) drug therapy; Z82.3 Family history of stroke; Z83.3 Family history of diabetes mellitus; Z82.5 Family history of asthma and other chronic lower respiratory diseases; Z82.49 Family history of ischemic heart disease and other diseases of the circulatory system
CPT/HCPCS: 36415; 36600; 43239; 43248; 45385; 71045; 73630; 74176; 74230; 80048; 80053; 80076; 81001; 82140; 82550; 82803; 82948; 83036; 83605; 83690; 83735; 83880; 84443; 84484; 85025; 85027; 85610; 85730; 87040; 87070; 87077; 87186; 87426; 87804; 92610; 92611; 93005; 93306; 93356; 93925; 93971; 97039; 99291; A6250; C1894; G0378; J1170; J1756; J1940; J1956; J2260; J2405; J2704; J2765; J2916; J3475; J3480; J3490; J7030; J7070; U0003

== ENCOUNTER 2021-01-19 15:18 | Inpatient (IN) | payer MEDICAID ==
[~2021-01-19] VITALS: Ht 149.9 cm; Wt 55.8 kg
[~2021-01-19 15:18] MED LIST changes: +ALBUTEROL INHALER PO; -ATOR10 PO; +ATOR20TA65 PO; -CLOP75TA32 PO; +DIGO125T71 PO; -DOXY100C40 PO; +EMPA25TA PO; -FURO40TA7 PO; -HYDR-4068 PO; +ISOS30TA92 PO; -ISOS60TA77 PO; +LEVO750T46 PO; -MAGN400T53 PO; +METF-446 PO; +METO2.5T2 PO; -Nitroglycerin 0.4MG Sl Tab SL; +ONDA-104 PO; -POTA10CA44 PO; +SACU1TAB PO; +SPIR25TA PO; -SPIR25TA6 PO; +TICA60TA PO; -TICA90TA PO; +TORS100T16 PO
[2021-01-19 15:19] VITALS: BP 88/49
[2021-01-19 15:57] VITALS: BP 116/50
[2021-01-19 16:11] LABS: BASOPHILS % (AUTO) 0.3 % (0.0-5.0); HEMATOCRIT 41.2 % (36-48); MEAN CORPUSCULAR HEMOGLOBIN 30.7 pg (27.0-33.0); MEAN CORPUSCULAR HGB CONC 33.3 g/dL (32.0-36.0); MEAN CORPUSCULAR VOLUME 92.4 fL (79-99); MONOCYTES % (AUTO) 5.4 % (3.0-13.0); NEUTROPHILS % (AUTO) 80.9 % (40.0-77.0); PLATELET COUNT (AUTO) 199 K/uL (130-400); RED BLOOD CELL COUNT(AUTO) 4.46 MIL/uL (4.00-5.50); RED CELL DISTRIBUTION WIDTH 13.7 % (11.0-15.5); WHITE BLOOD COUNT (AUTO) 9.4 K/uL (4.8-10.8)
[2021-01-19 16:24] LABS: ALBUMIN 4.1 g/dL (3.5-5.0); BILIRUBIN,TOTAL 0.9 mg/dL (0.2-1.0); CREATININE 5.5 mg/dL (0.5-1.5); MAGNESIUM 2.1 mg/dL (1.80-2.40); POTASSIUM 4.8 mmol/L (3.5-5.1); TOTAL PROTEIN, SERUM 8.9 g/dL (6.0-8.3)
[2021-01-19] MEDS ORDERED: [UNRECOGNIZED DRUG - OTHER] IV ONE (16:30)
[2021-01-19] MEDS: LEVOFLOXACIN 500 MG/D5W 100 ML 100 ML IV SCH ×2 (16:39→18:27)
[2021-01-19 16:55] LABS: B-TYPE NATRIURETIC PEPTIDE 1160 pg/mL (0-100)
[2021-01-19 17:15] LABS: ABG BASE EXCESS -6.2 mmol/L (-2.0-3.0); ABG HCO3 17.6 mmol/L (21.0-28.0); ABG OXYGEN SATURATION 90.1 % (95.0-99.0); ABG PCO2 31 mmHg (32-45)
[2021-01-19] MEDS ORDERED: MAG/ALUM/SIMETH 30 ML UDCUP PO PRN (19:30)
[2021-01-19] MEDS ORDERED: ONDANSETRON 4MG INJ IV PRN (19:30)
[2021-01-19] MEDS ORDERED: LACTULOSE 20 GM/30 ML UDCUP PO PRN (19:30)
[2021-01-19] MEDS ORDERED: NITROGLYCERIN 0.4 MG SL TAB SL PRN (19:30)
[2021-01-19] MEDS ORDERED: ACETAMINOPHEN 325 MG TAB PO PRN ×2 (19:30)
[2021-01-19 19:49] VITALS: BP 106/50
[2021-01-19 20:02] LABS: CHOLESTEROL 145 mg/dL (<200); HDL CHOLESTEROL 29 mg/dL (35-85); LDL DIRECT 62 mg/dL (0-99); TRIGLYCERIDES 356 mg/dL (30-200)
[2021-01-19 20:19] LABS: HEMOGLOBIN A1C 13.3 % (4.0-6.0)
[2021-01-19 20:50] LABS: APPEARANCE,URINE Clear (CLEAR); BILIRUBIN,URINE Negative (NEGATIVE); CHLORIDE,URINE RANDOM 101 mmol/L (110-250); COLOR,URINE Yellow (YELLOW); GLUCOSE, URINE (UA) 500 mg/dL (NEGATIVE); KETONES,URINE Negative (NEGATIVE); LEUKOCYTE ESTERASE ,URINE Small (NEGATIVE); NITRATE,URINE Negative (NEGATIVE); OCCULT BLOOD,URINE Negative (NEGATIVE); PH,URINE 5.5 (5.0-8.0); POTASSIUM,URINE RANDOM 10 mmol/L (25-125); PROTEIN,URINE Trace mg/dL (NEGATIVE); SODIUM,URINE RANDOM 100 mmol/l (40-220); UROBILINOGEN,URINE 0.2 mg/dL (0.2-1.0)
[2021-01-19 20:58] LABS: BACTERIA,URINE Rare /HPF (None Seen); MUCUS,URINE Rare LPF (None Seen); SQUAMOUS EPITHELIAL CELL,UR Rare /HPF (0-2)
[2021-01-19] MEDS ORDERED: MEPERIDINE-PF 25 MG/ML SYG IVP ONE (21:00)
[2021-01-19] MEDS: INSULIN GLARGINE 100 UNITS/ML 10 ML VIAL SQ SCH (21:15)
[2021-01-19] MEDS: INSULIN HUMULIN R 100 UNIT/ML 3ML SQ SCH (21:15)
[2021-01-19] MEDS: FAMOTIDINE 20MG TAB PO SCH (21:15)
[2021-01-20] VITALS (7 sets, daily range): BP systolic 107–130; BP diastolic 43–69
[2021-01-20] MEDS: INSULIN HUMULIN R 100 UNIT/ML 3ML SQ SCH ×7 (07:30→21:24)
[2021-01-20] MEDS: ENOXAPARIN SODIUM 40 MG/0.4 ML SYRINGE SQ SCH (08:21)
[2021-01-20 09:41] LABS: CREATININE 3.9 mg/dL (0.5-1.5); MAGNESIUM 1.8 mg/dL (1.80-2.40); POTASSIUM 4.1 mmol/L (3.5-5.1)
[2021-01-20 10:38] LABS: CREATININE,URINE RANDOM 19 mg/dL (30-135); SODIUM,URINE RANDOM 100 mmol/l (40-220)
[2021-01-20] MEDS: TICAGRELOR 90 MG TABLET PO SCH ×2 (11:30→21:14)
[2021-01-20] MEDS: ASPIRIN 81 MG EC TAB PO SCH (13:00)
[2021-01-20] MEDS ORDERED: ALBU90AE2 IH (17:18)
[2021-01-20] MEDS ORDERED: CARVEDILOL 3.125 MG TABLET PO SCH (21:00)
[2021-01-20] MEDS: FAMOTIDINE 20MG TAB PO SCH (21:14)
[2021-01-20] MEDS: SODIUM BICARBONATE 650 MG TAB PO SCH (21:14)
[2021-01-20] MEDS: INSULIN GLARGINE 100 UNITS/ML 10 ML VIAL SQ SCH (21:24)
[2021-01-21] VITALS (7 sets, daily range): BP systolic 101–133; BP diastolic 54–61
[2021-01-21 04:18] LABS: BASOPHILS % (AUTO) 0.4 % (0.0-5.0); EOSINOPHILS % (AUTO) 1.4 % (0.0-8.0); HEMATOCRIT 36.8 % (36-48); LYMPHOCYTES % (AUTO) 19.8 % (21.0-51.0); MEAN CORPUSCULAR HEMOGLOBIN 30.8 pg (27.0-33.0); MEAN CORPUSCULAR HGB CONC 33.2 g/dL (32.0-36.0); MEAN CORPUSCULAR VOLUME 92.9 fL (79-99); MONOCYTES % (AUTO) 8.4 % (3.0-13.0); NEUTROPHILS % (AUTO) 69.7 % (40.0-77.0); PLATELET COUNT (AUTO) 177 K/uL (130-400); RED BLOOD CELL COUNT(AUTO) 3.96 MIL/uL (4.00-5.50); RED CELL DISTRIBUTION WIDTH 13.7 % (11.0-15.5); WHITE BLOOD COUNT (AUTO) 7.1 K/uL (4.8-10.8)
[2021-01-21 04:59] LABS: CREATININE 2.5 mg/dL (0.5-1.5); MAGNESIUM 1.7 mg/dL (1.80-2.40); PHOSPHORUS 3.7 mg/dL (2.5-4.9); POTASSIUM 3.6 mmol/L (3.5-5.1); THYROID STIMULATING HORMONE 0.87 uIU/mL (0.36-3.74); URIC ACID 10.7 mg/dL (2.6-7.2)
[2021-01-21] MEDS: INSULIN HUMULIN R 100 UNIT/ML 3ML SQ SCH ×7 (05:26→19:59)
[2021-01-21] MEDS: ENOXAPARIN SODIUM 40 MG/0.4 ML SYRINGE SQ SCH (06:59)
[2021-01-21] MEDS: TICAGRELOR 90 MG TABLET PO SCH ×2 (07:00→20:40)
[2021-01-21] MEDS: ASPIRIN 81 MG EC TAB PO SCH (07:00)
[2021-01-21] MEDS: SODIUM BICARBONATE 650 MG TAB PO SCH ×2 (07:00→20:39)
[2021-01-21] MEDS: Vitamin B Complex/Vit C/Folic Acid PO SCH (07:00)
[2021-01-21] MEDS: LEVOFLOXACIN 250 MG/D5W 50ML 50 ML IVPB SCH (07:51)
[2021-01-21] MEDS ORDERED: ASPIRIN 81 MG EC TAB PO SCH (09:00)
[2021-01-21] MEDS: CARVEDILOL 3.125 MG TABLET PO SCH ×2 (09:13→20:45)
[2021-01-21] MEDS ORDERED: HYDR-4068 PO (11:02)
[2021-01-21] MEDS: HYDROCODONE/ACETAMINOPHEN 10/325 MG TAB PO PRN (11:35)
[2021-01-21] MEDS ORDERED: ISOS30TA92 PO (15:28)
[2021-01-21] MEDS: FAMOTIDINE 20MG TAB PO SCH (20:39)
[2021-01-21] MEDS: INSULIN GLARGINE 100 UNITS/ML 10 ML VIAL SQ SCH (20:44)
[2021-01-22] MEDS: HYDROCODONE/ACETAMINOPHEN 10/325 MG TAB PO PRN ×2 (00:13→17:39)
[2021-01-22 03:38] VITALS: BP 120/58
[2021-01-22 04:58] LABS: BASOPHILS % (AUTO) 0.3 % (0.0-5.0); EOSINOPHILS % (AUTO) 2.4 % (0.0-8.0); HEMATOCRIT 34.2 % (36-48); LYMPHOCYTES % (AUTO) 31.2 % (21.0-51.0); MEAN CORPUSCULAR HEMOGLOBIN 30.9 pg (27.0-33.0); MEAN CORPUSCULAR HGB CONC 33.3 g/dL (32.0-36.0); MEAN CORPUSCULAR VOLUME 92.7 fL (79-99); MONOCYTES % (AUTO) 8.6 % (3.0-13.0); NEUTROPHILS % (AUTO) 57.4 % (40.0-77.0); PLATELET COUNT (AUTO) 187 K/uL (130-400); RED BLOOD CELL COUNT(AUTO) 3.69 MIL/uL (4.00-5.50); RED CELL DISTRIBUTION WIDTH 13.7 % (11.0-15.5)
[2021-01-22 05:09] LABS: B-TYPE NATRIURETIC PEPTIDE 1620 pg/mL (0-100)
[2021-01-22 05:13] LABS: CREATININE 1.9 mg/dL (0.5-1.5); POTASSIUM 3.5 mmol/L (3.5-5.1)
[2021-01-22] MEDS: INSULIN HUMULIN R 100 UNIT/ML 3ML SQ SCH ×5 (07:30→21:32)
[2021-01-22 08:00] VITALS: BP 115/51
[2021-01-22] MEDS: CARVEDILOL 3.125 MG TABLET PO SCH ×2 (10:22→21:00)
[2021-01-22] MEDS: Vitamin B Complex/Vit C/Folic Acid PO SCH (10:22)
[2021-01-22] MEDS: SODIUM BICARBONATE 650 MG TAB PO SCH ×2 (10:22→21:36)
[2021-01-22] MEDS: TICAGRELOR 90 MG TABLET PO SCH ×2 (10:22→21:38)
[2021-01-22] MEDS: ENOXAPARIN SODIUM 40 MG/0.4 ML SYRINGE SQ SCH (10:23)
[2021-01-22] MEDS: ASPIRIN 81 MG EC TAB PO SCH (10:24)
[2021-01-22] MEDS: ISOSORBIDE MONO 30MG SR TAB PO SCH (10:32)
[2021-01-22 12:00] VITALS: BP 142/69
[2021-01-22 16:00] VITALS: BP 111/55
[2021-01-22 19:00] VITALS: BP 118/57
[2021-01-22] MEDS ORDERED: ATORVASTATIN 20 MG TABLET PO SCH (21:00)
[2021-01-22] MEDS: INSULIN GLARGINE 100 UNITS/ML 10 ML VIAL SQ SCH (21:34)
[2021-01-22] MEDS: FAMOTIDINE 20MG TAB PO SCH (21:36)
[2021-01-22 23:53] VITALS: BP 126/52
[2021-01-23 03:00] VITALS: BP 129/66
[2021-01-23 03:56] LABS: HEMATOCRIT 34.3 % (36-48); MEAN CORPUSCULAR HEMOGLOBIN 30.6 pg (27.0-33.0); MEAN CORPUSCULAR HGB CONC 32.7 g/dL (32.0-36.0); MEAN CORPUSCULAR VOLUME 93.7 fL (79-99); PLATELET COUNT (AUTO) 189 K/uL (130-400); RED BLOOD CELL COUNT(AUTO) 3.66 MIL/uL (4.00-5.50); RED CELL DISTRIBUTION WIDTH 13.7 % (11.0-15.5); WHITE BLOOD COUNT (AUTO) 6.9 K/uL (4.8-10.8)
[2021-01-23 04:27] LABS: CREATININE 1.6 mg/dL (0.5-1.5); DIGOXIN 1.53 ng/mL (0.50-2.00); POTASSIUM 3.3 mmol/L (3.5-5.1)
[2021-01-23 04:31] LABS: EOSINOPHILS % (MANUAL) 7 % (1-6); LYMPHOCYTES % (MANUAL) 32 % (22-44); MONOCYTES % (MANUAL) 8 % (2-9); SEGMENTED NEUTROPHILS % 53 % (40-70)
[2021-01-23 04:32] LABS: MAN.DIFF COMMENT-IMPRESSION MANUAL DIFFERENTIAL
[2021-01-23] MEDS: INSULIN HUMULIN R 100 UNIT/ML 3ML SQ SCH ×3 (06:52→11:30)
[2021-01-23 08:00] VITALS: BP 122/50
[2021-01-23] MEDS ORDERED: TORSEMIDE 20 MG TAB PO SCH (09:00)
[2021-01-23] MEDS ORDERED: TORS100T16 PO (09:29)
[2021-01-23] MEDS: ASPIRIN 81 MG EC TAB PO SCH (10:58)
[2021-01-23] MEDS: ISOSORBIDE MONO 30MG SR TAB PO SCH (10:59)
[2021-01-23] MEDS: CARVEDILOL 3.125 MG TABLET PO SCH (11:00)
[2021-01-23] MEDS: SODIUM BICARBONATE 650 MG TAB PO SCH (11:00)
[2021-01-23] MEDS: Vitamin B Complex/Vit C/Folic Acid PO SCH (11:00)
[2021-01-23] MEDS: ENOXAPARIN SODIUM 40 MG/0.4 ML SYRINGE SQ SCH (11:02)
[2021-01-23] MEDS: TICAGRELOR 90 MG TABLET PO SCH (11:02)
[2021-01-23] MEDS: LEVOFLOXACIN 250 MG/D5W 50ML 50 ML IVPB SCH (11:03)
[2021-01-23] MEDS: HYDROCODONE/ACETAMINOPHEN 10/325 MG TAB PO PRN (11:03)
[2021-01-23 12:00] VITALS: BP 115/54
[2021-01-23 16:00] VITALS: BP 103/45
[2021-01-23] MEDS ORDERED: POTASSIUM CHLORIDE 20MEQ/100ML 100 ML IV PRN (16:00)
[2021-01-23] MEDS ORDERED: LIDOCAINE HCL-MPF 1% 2ML VIAL IV PRN (16:00)
[2021-01-23] MEDS ORDERED: POTASSIUM CHLORIDE 10% ELIXIR 20 MEQ/15 ML UDCUP PO PRN (16:00)
[2021-01-23] MEDS ORDERED: KCL 20 MEQ ERTAB PO PRN (16:00)
== END 2021-01-23 16:45 | disposition home or self-care (01) | DRG 469 ==
LOC: EDH 15:18 → EDHIP 15:19 → 4CH 01-20 14:54 → 4BH 01-20 22:59
PROVIDERS: ADMIT Internal Medicine; ATTEND Internal Medicine
DX: N17.9 Acute kidney failure, unspecified (principal); I50.43 Acute on chronic combined systolic (congestive) and diastolic (congestive) heart failure; E11.22 Type 2 diabetes mellitus with diabetic chronic kidney disease; E11.51 Type 2 diabetes mellitus with diabetic peripheral angiopathy without gangrene; I69.351 Hemiplegia and hemiparesis following cerebral infarction affecting right dominant side; B35.1 Tinea unguium; I25.10 Atherosclerotic heart disease of native coronary artery without angina pectoris; D50.9 Iron deficiency anemia, unspecified; I13.0 Hypertensive heart and chronic kidney disease with heart failure and stage 1 through stage 4 chronic kidney disease, or unspecified chronic kidney disease; E86.9 Volume depletion, unspecified; N18.30 Chronic kidney disease, stage 3 unspecified; Z20.822 Contact with and (suspected) exposure to COVID-19; M19.90 Unspecified osteoarthritis, unspecified site; E78.5 Hyperlipidemia, unspecified; R77.8 Other specified abnormalities of plasma proteins; I25.5 Ischemic cardiomyopathy; S50.02XA Contusion of left elbow, initial encounter; Y93.89 Activity, other specified; Y92.89 Other specified places as the place of occurrence of the external cause; Y99.8 Other external cause status; Z87.891 Personal history of nicotine dependence; Z95.820 Peripheral vascular angioplasty status with implants and grafts; Z95.5 Presence of coronary angioplasty implant and graft; Z95.1 Presence of aortocoronary bypass graft; I25.2 Old myocardial infarction; Z88.0 Allergy status to penicillin; Z88.8 Allergy status to other drugs, medicaments and biological substances; Z90.49 Acquired absence of other specified parts of digestive tract; Z89.412 Acquired absence of left great toe; Z82.5 Family history of asthma and other chronic lower respiratory diseases; Z83.3 Family history of diabetes mellitus; Z82.3 Family history of stroke; Z82.49 Family history of ischemic heart disease and other diseases of the circulatory system
CPT/HCPCS: 36415; 36600; 71045; 73080; 76770; 80048; 80051; 80053; 80061; 80162; 81001; 82550; 82570; 82803; 82948; 83036; 83605; 83735; 83874; 83880; 84100; 84145; 84300; 84443; 84484; 84540; 84550; 85025; 86140; 87040; 87088; 87635; 87804; 93005; 93306; 93356; 93970; C9803; G0378; J1650; J1815; J1956; J2175; J2405; J7030

== ENCOUNTER 2021-02-18 12:17 | Inpatient (IN) | payer MEDICAID ==
[~2021-02-18] VITALS: Ht 149.9 cm; Wt 56.2 kg
[~2021-02-18 12:17] MED LIST changes: +ALBU90AE2 IH; -ALBUTEROL INHALER PO; -DIGO125T71 PO; +HYDR-4068 PO; -LEVO750T46 PO; -METF-446 PO; -METO2.5T2 PO; -ONDA-104 PO; -SACU1TAB PO; -SPIR25TA PO
[2021-02-18 12:42] LABS: BASOPHILS % (AUTO) 0.5 % (0.0-5.0); EOSINOPHILS % (AUTO) 1.6 % (0.0-8.0); HEMATOCRIT 34.7 % (36-48); LYMPHOCYTES % (AUTO) 20.1 % (21.0-51.0); MEAN CORPUSCULAR HEMOGLOBIN 29.9 pg (27.0-33.0); MEAN CORPUSCULAR VOLUME 93.5 fL (79-99); MONOCYTES % (AUTO) 5.1 % (3.0-13.0); NEUTROPHILS % (AUTO) 72.4 % (40.0-77.0); PLATELET COUNT (AUTO) 237 K/uL (130-400); RED BLOOD CELL COUNT(AUTO) 3.71 MIL/uL (4.00-5.50); WHITE BLOOD COUNT (AUTO) 7.4 K/uL (4.8-10.8)
[2021-02-18 12:55] LABS: POTASSIUM 3.6 mmol/L (3.5-5.1)
[2021-02-18 13:00] LABS: ALBUMIN 3.4 g/dL (3.5-5.0); BILIRUBIN,TOTAL 1.7 mg/dL (0.2-1.0); TOTAL PROTEIN, SERUM 7.7 g/dL (6.0-8.3)
[2021-02-18 13:16] LABS: B-TYPE NATRIURETIC PEPTIDE 4180 pg/mL (0-100)
[2021-02-18] MEDS ORDERED: FUROSEMIDE 40MG VIAL IV SCH (13:30)
[2021-02-18] MEDS ORDERED: BUMETANIDE 2.5MG/10ML VIAL IV SCH (15:00)
[2021-02-18] MEDS ORDERED: BUMETANIDE 0.25MG/ML 40ML IV SCH (15:30)
[2021-02-18] MEDS: FAMOTIDINE 20MG VIAL IV SCH (16:33)
[2021-02-18] MEDS: NITROGLYCERIN 1GM OINT 1 INCH/1GM TD SCH ×2 (16:33→23:00)
[2021-02-18 16:35] LABS: RETICULOCYTE % (AUTO) 4.13 % (0.42-2.23)
[2021-02-18 16:48] LABS: INR 1.19 (0.85-1.15); PROTHROMBIN TIME 12.8 SEC (9.6-11.6)
[2021-02-18 16:49] LABS: PARTIAL THROMBOPLASTIN TIME 26.5 SEC (26.3-35.5)
[2021-02-18 16:56] LABS: % IRON SATURATION 21.7 % (22-44)
[2021-02-18 17:14] LABS: MAGNESIUM 1.5 mg/dL (1.80-2.40); PHOSPHORUS 3.5 mg/dL (2.5-4.9)
[2021-02-18 17:15] LABS: THYROID STIMULATING HORMONE 1.38 uIU/mL (0.36-3.74)
[2021-02-18] MEDS: FUROSEMIDE 40MG VIAL IV SCH (17:30)
[2021-02-18] MEDS: MORPHINE 2 MG SYG IV PRN (18:33)
[2021-02-18] MEDS: TICAGRELOR 60 MG PO SCH (21:00)
[2021-02-18] MEDS: ATORVASTATIN 40 MG TABLET PO SCH (21:28)
[2021-02-18] MEDS: CARVEDILOL 3.125 MG TABLET PO SCH (21:28)
[2021-02-19] MEDS: MORPHINE 2 MG SYG IV PRN ×3 (00:02→13:44)
[2021-02-19] MEDS: FUROSEMIDE 40MG VIAL IV SCH (05:30)
[2021-02-19] MEDS: NITROGLYCERIN 1GM OINT 1 INCH/1GM TD SCH ×3 (07:00→23:00)
[2021-02-19 07:19] LABS: BASOPHILS % (AUTO) 0.7 % (0.0-5.0); EOSINOPHILS % (AUTO) 1.7 % (0.0-8.0); HEMATOCRIT 35.4 % (36-48); MEAN CORPUSCULAR HGB CONC 31.6 g/dL (32.0-36.0); MEAN CORPUSCULAR VOLUME 94.9 fL (79-99); MONOCYTES % (AUTO) 6.3 % (3.0-13.0); NEUTROPHILS % (AUTO) 61.9 % (40.0-77.0); PLATELET COUNT (AUTO) 226 K/uL (130-400); RED BLOOD CELL COUNT(AUTO) 3.73 MIL/uL (4.00-5.50); RED CELL DISTRIBUTION WIDTH 14.1 % (11.0-15.5); WHITE BLOOD COUNT (AUTO) 7.1 K/uL (4.8-10.8)
[2021-02-19 07:40] LABS: POTASSIUM 3.3 mmol/L (3.5-5.1)
[2021-02-19 07:45] LABS: B-TYPE NATRIURETIC PEPTIDE 4220 pg/mL (0-100)
[2021-02-19] MEDS ORDERED: MAGNESIUM 2GM PREMIX 50ML 50 ML IV SCH (09:00)
[2021-02-19] MEDS ORDERED: BUMETANIDE 2.5MG/10ML VIAL 40 ML IV SCH (09:00)
[2021-02-19] MEDS: TICAGRELOR 60 MG PO SCH ×2 (09:00→21:00)
[2021-02-19] MEDS: FAMOTIDINE 20MG VIAL IV SCH (09:23)
[2021-02-19] MEDS: ASPIRIN 81MG CHEW TAB PO SCH (09:23)
[2021-02-19] MEDS: ENOXAPARIN SODIUM 40 MG/0.4 ML SYRINGE SQ SCH (09:24)
[2021-02-19] MEDS: ALLOPURINOL 100 MG TABLET PO SCH (09:25)
[2021-02-19] MEDS: CARVEDILOL 3.125 MG TABLET PO SCH ×2 (09:25→22:19)
[2021-02-19] MEDS: MAGNESIUM OXIDE 400 MG TABLET PO SCH (09:26)
[2021-02-19] MEDS: INSULIN HUMULIN R 100 UNIT/ML 3ML SQ SCH ×3 (12:48→22:39)
[2021-02-19] MEDS ORDERED: DIGO125T71 PO (13:08)
[2021-02-19] MEDS ORDERED: METO2.5T2 PO (13:08)
[2021-02-19] MEDS ORDERED: SPIR25TA6 PO (13:08)
[2021-02-19] MEDS ORDERED: ATOR10 PO (13:08)
[2021-02-19] MEDS ORDERED: SACU1TAB PO (13:08)
[2021-02-19] MEDS ORDERED: MEGE20TA3 PO (13:08)
[2021-02-19] MEDS ORDERED: DIPHENHYDRAMINE HCL 25 MG CAPSULE PO PRN (16:00)
[2021-02-19] MEDS ORDERED: GABA600T10 PO (16:33)
[2021-02-19] MEDS ORDERED: HYDROXYZINE 25 MG TABLET PO PRN (19:30)
[2021-02-19] MEDS ORDERED: LIDOCAINE HCL-MPF 1% 2ML VIAL IV PRN (19:30)
[2021-02-19] MEDS ORDERED: POTASSIUM CHLORIDE 20MEQ/100ML 100 ML IV PRN (19:30)
[2021-02-19] MEDS ORDERED: KCL 20 MEQ ERTAB PO PRN (19:30)
[2021-02-19] MEDS ORDERED: HYDROCODONE/ACETAMINOPHEN 10/325 MG TAB ONE (20:21)
[2021-02-19 22:01] VITALS: BP 137/68
[2021-02-19] MEDS: ATORVASTATIN 40 MG TABLET PO SCH (22:18)
[2021-02-19] MEDS: POTASSIUM CHLORIDE 10% ELIXIR 20 MEQ/15 ML UDCUP PO PRN (22:19)
[2021-02-20] MEDS: HYDROCODONE/ACETAMINOPHEN 10/325 MG TAB PO PRN ×2 (00:15→14:09)
[2021-02-20] MEDS: POTASSIUM CHLORIDE 10% ELIXIR 20 MEQ/15 ML UDCUP PO PRN (00:15)
[2021-02-20 04:04] LABS: BASOPHILS % (AUTO) 0.3 % (0.0-5.0); EOSINOPHILS % (AUTO) 1.8 % (0.0-8.0); HEMATOCRIT 34.6 % (36-48); LYMPHOCYTES % (AUTO) 21.3 % (21.0-51.0); MEAN CORPUSCULAR HEMOGLOBIN 29.8 pg (27.0-33.0); MEAN CORPUSCULAR HGB CONC 31.2 g/dL (32.0-36.0); MEAN CORPUSCULAR VOLUME 95.6 fL (79-99); MONOCYTES % (AUTO) 5.3 % (3.0-13.0); NEUTROPHILS % (AUTO) 71.1 % (40.0-77.0); PLATELET COUNT (AUTO) 223 K/uL (130-400); RED BLOOD CELL COUNT(AUTO) 3.62 MIL/uL (4.00-5.50); RED CELL DISTRIBUTION WIDTH 13.8 % (11.0-15.5); WHITE BLOOD COUNT (AUTO) 8.9 K/uL (4.8-10.8)
[2021-02-20 04:05] LABS: HEMOGLOBIN A1C 12.6 % (4.0-6.0)
[2021-02-20 04:15] LABS: AMMONIA 43 umol/L (11-32); ASPARTATE AMINOTRANSFERASE 14 U/L (10-37); BILIRUBIN,DIRECT 0.3 mg/dL (0.0-0.3); BILIRUBIN,TOTAL 1.5 mg/dL (0.2-1.0); CARBON DIOXIDE 25 mmol/L (21-32); CHLORIDE 107 mmol/L (101-111); CREATININE 1.1 mg/dL (0.5-1.5); GAMMA GLUTAMYL TRANSFERASE 18 U/L (5-85); GLOMERULAR FILTR. RATE CALC 55 mL/min (>60); GLUCOSE,RANDOM 184 mg/dL (70-105); PHOSPHORUS 3.3 mg/dL (2.5-4.9); SODIUM SERUM 143 mmol/L (136-145); UREA NITROGEN, BLOOD 16 mg/dL (7-18)
[2021-02-20 04:22] VITALS: BP 109/61
[2021-02-20 05:26] LABS: ALANINE AMINOTRANSFERASE < 6 U/L (12-78)
[2021-02-20] MEDS: NITROGLYCERIN 1GM OINT 1 INCH/1GM TD SCH ×2 (05:52→14:09)
[2021-02-20] MEDS: INSULIN HUMULIN R 100 UNIT/ML 3ML SQ SCH ×2 (05:54→11:30)
[2021-02-20 06:58] LABS: APPEARANCE,URINE Clear (CLEAR); BILIRUBIN,URINE Negative (NEGATIVE); COLOR,URINE Yellow (YELLOW); GLUCOSE, URINE (UA) TRACE mg/dL (NEGATIVE); KETONES,URINE Negative (NEGATIVE); LEUKOCYTE ESTERASE ,URINE Moderate (NEGATIVE); NITRATE,URINE Negative (NEGATIVE); OCCULT BLOOD,URINE Negative (NEGATIVE); PROTEIN,URINE 300 mg/dL (NEGATIVE); UROBILINOGEN,URINE 0.2 mg/dL (0.2-1.0)
[2021-02-20 07:15] LABS: BACTERIA,URINE Few /HPF (None Seen); RBC,URINE 0-1 /HPF (0-1)
[2021-02-20 07:16] LABS: MUCUS,URINE Few LPF (None Seen)
[2021-02-20 08:02] VITALS: BP 112/55
[2021-02-20] MEDS: TICAGRELOR 60 MG PO SCH (09:00)
[2021-02-20] MEDS ORDERED: TORS100T16 PO (09:01)
[2021-02-20] MEDS: FAMOTIDINE 20MG VIAL IV SCH (09:27)
[2021-02-20] MEDS: ASPIRIN 81MG CHEW TAB PO SCH (09:27)
[2021-02-20] MEDS: ALLOPURINOL 100 MG TABLET PO SCH (09:27)
[2021-02-20] MEDS: CARVEDILOL 3.125 MG TABLET PO SCH (09:27)
[2021-02-20] MEDS: MAGNESIUM OXIDE 400 MG TABLET PO SCH (09:27)
[2021-02-20] MEDS: ENOXAPARIN SODIUM 40 MG/0.4 ML SYRINGE SQ SCH (09:27)
[2021-02-20 10:55] VITALS: BP 114/62
== END 2021-02-20 16:00 | disposition home or self-care (01) | DRG 194 ==
LOC: EDH 12:17 → EDHIP 12:18 → UNDOADMIN 14:48 → EDHIP 14:48 → 4AH 02-19 21:31
PROVIDERS: ADMIT Internal Medicine; ATTEND Internal Medicine
DX: I13.0 Hypertensive heart and chronic kidney disease with heart failure and stage 1 through stage 4 chronic kidney disease, or unspecified chronic kidney disease (principal); I21.A1 Myocardial infarction type 2; I95.9 Hypotension, unspecified; E11.22 Type 2 diabetes mellitus with diabetic chronic kidney disease; E11.40 Type 2 diabetes mellitus with diabetic neuropathy, unspecified; E83.42 Hypomagnesemia; E11.51 Type 2 diabetes mellitus with diabetic peripheral angiopathy without gangrene; Z95.1 Presence of aortocoronary bypass graft; R13.10 Dysphagia, unspecified; I50.43 Acute on chronic combined systolic (congestive) and diastolic (congestive) heart failure; I25.5 Ischemic cardiomyopathy; N18.9 Chronic kidney disease, unspecified; D50.9 Iron deficiency anemia, unspecified; E78.5 Hyperlipidemia, unspecified; E87.6 Hypokalemia; I25.10 Atherosclerotic heart disease of native coronary artery without angina pectoris; I69.351 Hemiplegia and hemiparesis following cerebral infarction affecting right dominant side; J45.909 Unspecified asthma, uncomplicated; K57.30 Diverticulosis of large intestine without perforation or abscess without bleeding; K62.1 Rectal polyp; E79.0 Hyperuricemia without signs of inflammatory arthritis and tophaceous disease; K63.5 Polyp of colon; I25.2 Old myocardial infarction; Z79.02 Long term (current) use of antithrombotics/antiplatelets; Z79.82 Long term (current) use of aspirin; Z79.899 Other long term (current) drug therapy; Z95.5 Presence of coronary angioplasty implant and graft; Z90.49 Acquired absence of other specified parts of digestive tract; Z89.412 Acquired absence of left great toe; Z83.71 Family history of colonic polyps; Z82.3 Family history of stroke; Z82.49 Family history of ischemic heart disease and other diseases of the circulatory system; Z82.5 Family history of asthma and other chronic lower respiratory diseases; Z83.3 Family history of diabetes mellitus
CPT/HCPCS: 36415; 71045; 71046; 80048; 80053; 80076; 81001; 82140; 82306; 82550; 82948; 82977; 83036; 83540; 83550; 83735; 83874; 83880; 84100; 84145; 84443; 84484; 84550; 85025; 85045; 85610; 85730; 87088; 93005; 93970; G0378; J1650; J1815; J1940; J3475; J3490

== ENCOUNTER 2021-03-07 16:12 | Emergency (ER) | payer MEDICAID ==
[~2021-03-07] VITALS: Ht 149.9 cm; Wt 56.2 kg
[~2021-03-07 16:12] MED LIST changes: -AEC81 PO; +ATOR10 PO; -ATOR20TA65 PO; +DIGO125T71 PO; -EMPA25TA PO; -ISOS30TA92 PO; +MEGE20TA3 PO; +METO2.5T2 PO; +SACU1TAB PO; +SPIR25TA6 PO
[2021-03-07] MEDS ORDERED: BISACODYL 10 MG SUPP.RECT RC ONE (17:00)
[2021-03-07 17:32] LABS: BASOPHILS % (AUTO) 0.6 % (0.0-5.0); EOSINOPHILS % (AUTO) 1.1 % (0.0-8.0); HEMATOCRIT 38.8 % (36-48); LYMPHOCYTES % (AUTO) 9.8 % (21.0-51.0); MEAN CORPUSCULAR HEMOGLOBIN 29.8 pg (27.0-33.0); MEAN CORPUSCULAR VOLUME 93.3 fL (79-99); MONOCYTES % (AUTO) 2.8 % (3.0-13.0); NEUTROPHILS % (AUTO) 85.2 % (40.0-77.0); PLATELET COUNT (AUTO) 225 K/uL (130-400); RED BLOOD CELL COUNT(AUTO) 4.16 MIL/uL (4.00-5.50); RED CELL DISTRIBUTION WIDTH 12.9 % (11.0-15.5); WHITE BLOOD COUNT (AUTO) 9.7 K/uL (4.8-10.8)
[2021-03-07 18:03] LABS: ALBUMIN 3.8 g/dL (3.5-5.0); BILIRUBIN,TOTAL 1.5 mg/dL (0.2-1.0); CREATININE 1.5 mg/dL (0.5-1.5); POTASSIUM 4.5 mmol/L (3.5-5.1); TOTAL PROTEIN, SERUM 8.4 g/dL (6.0-8.3)
[2021-03-07] MEDS ORDERED: INSULIN HUMULIN R 100 UNIT/ML 3ML IV ONE (19:00)
[2021-03-07] MEDS ORDERED: HYDROCODONE/ACETAMINOPHEN 10/325 MG TAB ONE (21:11)
[2021-03-07] MEDS ORDERED: BISA10SU61 RC ×2 (21:12)
[2021-03-07] MEDS ORDERED: HYDROCODONE/ACETAMINOPHEN 10/325 MG TAB PO ONE (21:30)
[2021-03-07 22:47] VITALS: BP 143/86
[2021-03-11] MEDS ORDERED: GABA-533 PO ×2 (17:57)
== END 2021-03-07 23:12 | disposition home or self-care (01) ==
LOC: EDH 16:12
DX: K59.00 Constipation, unspecified (principal); E11.65 Type 2 diabetes mellitus with hyperglycemia; R79.89 Other specified abnormal findings of blood chemistry; I11.0 Hypertensive heart disease with heart failure; I50.9 Heart failure, unspecified; E78.00 Pure hypercholesterolemia, unspecified; J45.909 Unspecified asthma, uncomplicated; M19.90 Unspecified osteoarthritis, unspecified site; Z88.0 Allergy status to penicillin; Z88.6 Allergy status to analgesic agent; Z79.899 Other long term (current) drug therapy
CPT/HCPCS: 36415; 71045; 80053; 82270; 82550; 82948; 84484 ×2; 85025; 93005 ×3; 96374; 99285; J1815

== ENCOUNTER 2021-03-11 10:59 | Inpatient (IN) | payer MEDICAID ==
[~2021-03-11] VITALS: Ht 180.3 cm; Wt 56.3 kg
[~2021-03-11 10:59] MED LIST changes: +BISA10SU61 RC
[2021-03-11] MEDS ORDERED: ONDANSETRON 4MG INJ IVP SCH (12:30)
[2021-03-11] MEDS ORDERED: MORPHINE 4 MG SYG IVP SCH (12:30)
[2021-03-11] MEDS ORDERED: ACETAMINOPHEN 325 MG TAB PO SCH (12:30)
[2021-03-11] MEDS ORDERED: 0.9%NACL 1000ML 1,000 ML IV SCH (12:30)
[2021-03-11] MEDS ORDERED: ZOSYN 3.375GM +NS 50ML IV ONE (12:30)
[2021-03-11] MEDS ORDERED: ZOSYN 3.375GM+NS 50ML 50 ML IV SCH (13:00)
[2021-03-11 13:03] LABS: BASOPHILS % (AUTO) 0.7 % (0.0-5.0); EOSINOPHILS % (AUTO) 2.1 % (0.0-8.0); HEMATOCRIT 37.7 % (36-48); LYMPHOCYTES % (AUTO) 17.6 % (21.0-51.0); MEAN CORPUSCULAR HEMOGLOBIN 29.5 pg (27.0-33.0); MEAN CORPUSCULAR HGB CONC 31.6 g/dL (32.0-36.0); MEAN CORPUSCULAR VOLUME 93.5 fL (79-99); MONOCYTES % (AUTO) 5.6 % (3.0-13.0); NEUTROPHILS % (AUTO) 73.8 % (40.0-77.0); PLATELET COUNT (AUTO) 229 K/uL (130-400); RED BLOOD CELL COUNT(AUTO) 4.03 MIL/uL (4.00-5.50); WHITE BLOOD COUNT (AUTO) 8.1 K/uL (4.8-10.8)
[2021-03-11 13:23] LABS: CARBON DIOXIDE 29 mmol/L (21-32); CHLORIDE 101 mmol/L (101-111); CREATININE 1.4 mg/dL (0.5-1.5); GLOMERULAR FILTR. RATE CALC 41 mL/min (>60); GLUCOSE,RANDOM 363 mg/dL (70-105); POTASSIUM 4.8 mmol/L (3.5-5.1); SODIUM SERUM 139 mmol/L (136-145); UREA NITROGEN, BLOOD 30 mg/dL (7-18)
[2021-03-11 13:27] LABS: ALANINE AMINOTRANSFERASE 11 U/L (12-78); ALBUMIN 3.7 g/dL (3.5-5.0); ASPARTATE AMINOTRANSFERASE 11 U/L (10-37); BILIRUBIN,TOTAL 1.6 mg/dL (0.2-1.0); CREATINE KINASE, TOTAL 48 U/L (21-232); TOTAL PROTEIN, SERUM 8.2 g/dL (6.0-8.3)
[2021-03-11 13:29] LABS: LIPASE < 50 U/L (114-286)
[2021-03-11 13:50] LABS: APPEARANCE,URINE TURBID (CLEAR); BILIRUBIN,URINE NEGATIVE (NEGATIVE); COLOR,URINE YELLOW (YELLOW); GLUCOSE, URINE (UA) 250 mg/dL (NEGATIVE); KETONES,URINE NEGATIVE (NEGATIVE); LEUKOCYTE ESTERASE ,URINE MODERATE (NEGATIVE); NITRATE,URINE NEGATIVE (NEGATIVE); OCCULT BLOOD,URINE MODERATE (NEGATIVE); PH,URINE 5.5 (5.0-8.0); PROTEIN,URINE 30 mg/dL (NEGATIVE); UROBILINOGEN,URINE 0.2 mg/dL (0.2-1.0)
[2021-03-11 14:07] LABS: BACTERIA,URINE Many /HPF (None Seen); RBC,URINE 0-1 /HPF (0-1); SQUAMOUS EPITHELIAL CELL,UR Rare /HPF (0-2); WBC,URINE TNTC /HPF (0-1)
[2021-03-11] MEDS ORDERED: GABA-533 PO (17:57)
[2021-03-11] MEDS ORDERED: ONDANSETRON 4MG INJ IVP PRN (19:00)
[2021-03-11] MEDS ORDERED: ACETAMINOPHEN 325 MG TAB PO PRN ×2 (19:00)
[2021-03-11] MEDS ORDERED: HYDRALAZINE 20MG/ML VIAL IV PRN (19:00)
[2021-03-11] MEDS ORDERED: LACTULOSE 20 GM/30 ML UDCUP PO PRN (19:00)
[2021-03-11] MEDS ORDERED: GUAIFENESIN-DM 200/20 MG 10 ML PO PRN (19:00)
[2021-03-11] MEDS: TRAMADOL HCL 50 MG TABLET PO PRN (20:12)
[2021-03-11] MEDS: HEPARIN 5,000 UNIT VIAL SQ SCH (21:15)
[2021-03-11] MEDS: FAMOTIDINE 20MG TAB PO SCH (21:15)
[2021-03-11] MEDS: LACTULOSE 20 GM/30 ML UDCUP PO SCH (21:15)
[2021-03-11] MEDS: INSULIN HUMULIN R 100 UNIT/ML 3ML SQ SCH (21:16)
[2021-03-11] MEDS ORDERED: BISACODYL 10 MG SUPP.RECT RC ONE ×2 (22:00→23:10)
[2021-03-11] MEDS ORDERED: ZOSYN 3.375GM +NS 50ML IV SCH (22:00)
[2021-03-12] MEDS ORDERED: LEVOFLOXACIN 500 MG/D5W 100 ML 100 ML IV SCH (01:00)
[2021-03-12] MEDS: LACTULOSE 20 GM/30 ML UDCUP PO SCH ×3 (01:51→13:30)
[2021-03-12] MEDS: TRAMADOL HCL 50 MG TABLET PO PRN (04:03)
[2021-03-12 07:16] LABS: HEMOGLOBIN A1C 12.6 % (4.0-6.0)
[2021-03-12] MEDS: INSULIN HUMULIN R 100 UNIT/ML 3ML SQ SCH ×2 (08:39→11:25)
[2021-03-12] MEDS: HEPARIN 5,000 UNIT VIAL SQ SCH ×2 (09:00→13:31)
[2021-03-12] MEDS: FAMOTIDINE 20MG TAB PO SCH (09:00)
[2021-03-12 10:43] VITALS: BP 92/56
[2021-03-12 16:13] VITALS: BP 103/59
[2021-03-12] MEDS ORDERED: TICAGRELOR 60 MG PO SCH (21:00)
[2021-05-20] MEDS ORDERED: ORPH100 PO (16:48)
== END 2021-03-12 16:35 | disposition home or self-care (01) | DRG 463 ==
LOC: EDH 10:59 → EDHIP 11:00 → 3BH 03-12 09:48
PROVIDERS: ADMIT Hospitalist; ATTEND Hospitalist
DX: N39.0 Urinary tract infection, site not specified (principal); E11.22 Type 2 diabetes mellitus with diabetic chronic kidney disease; E11.42 Type 2 diabetes mellitus with diabetic polyneuropathy; E11.51 Type 2 diabetes mellitus with diabetic peripheral angiopathy without gangrene; K59.00 Constipation, unspecified; E11.65 Type 2 diabetes mellitus with hyperglycemia; I25.10 Atherosclerotic heart disease of native coronary artery without angina pectoris; E78.00 Pure hypercholesterolemia, unspecified; F41.9 Anxiety disorder, unspecified; G89.29 Other chronic pain; M19.90 Unspecified osteoarthritis, unspecified site; M43.07 Spondylolysis, lumbosacral region; I69.351 Hemiplegia and hemiparesis following cerebral infarction affecting right dominant side; I25.5 Ischemic cardiomyopathy; N18.30 Chronic kidney disease, stage 3 unspecified; E11.319 Type 2 diabetes mellitus with unspecified diabetic retinopathy without macular edema; I12.9 Hypertensive chronic kidney disease with stage 1 through stage 4 chronic kidney disease, or unspecified chronic kidney disease; Z88.6 Allergy status to analgesic agent; Z88.0 Allergy status to penicillin; Z88.8 Allergy status to other drugs, medicaments and biological substances; Z90.49 Acquired absence of other specified parts of digestive tract; Z87.891 Personal history of nicotine dependence; I25.2 Old myocardial infarction; Z95.5 Presence of coronary angioplasty implant and graft; Z95.1 Presence of aortocoronary bypass graft; Z91.19 Patient's noncompliance with other medical treatment and regimen; Z83.3 Family history of diabetes mellitus; Z82.49 Family history of ischemic heart disease and other diseases of the circulatory system; Z82.5 Family history of asthma and other chronic lower respiratory diseases; Z82.3 Family history of stroke; R77.8 Other specified abnormalities of plasma proteins
CPT/HCPCS: 36415; 71045; 74176; 80053; 81001; 82550; 82948; 83036; 83605; 83690; 84484; 85025; 87040; 87088; 93005; G0378; J1644; J1815; J1956; J2270; J2405; J2543; J7030

== ENCOUNTER 2021-05-03 04:23 | Emergency (ER) | payer MEDICAID ==
[~2021-05-03] VITALS: Ht 149.9 cm; Wt 69.4 kg
[~2021-05-03 04:23] MED LIST changes: +GABA-533 PO
[2021-05-03 04:57] LABS: BASOPHILS % (AUTO) 0.9 % (0.0-5.0); EOSINOPHILS % (AUTO) 1.5 % (0.0-8.0); HEMATOCRIT 41.2 % (36-48); LYMPHOCYTES % (AUTO) 19.6 % (21.0-51.0); MEAN CORPUSCULAR HEMOGLOBIN 27.5 pg (27.0-33.0); MEAN CORPUSCULAR HGB CONC 29.9 g/dL (32.0-36.0); MONOCYTES % (AUTO) 7.8 % (3.0-13.0); NEUTROPHILS % (AUTO) 69.9 % (40.0-77.0); PLATELET COUNT (AUTO) 206 K/uL (130-400); RED BLOOD CELL COUNT(AUTO) 4.48 MIL/uL (4.00-5.50); RED CELL DISTRIBUTION WIDTH 16.6 % (11.0-15.5); WHITE BLOOD COUNT (AUTO) 5.9 K/uL (4.8-10.8)
[2021-05-03 05:09] LABS: CARBON DIOXIDE 22 mmol/L (21-32); CHLORIDE 108 mmol/L (101-111); CREATININE 1.5 mg/dL (0.5-1.5); GLOMERULAR FILTR. RATE CALC 38 mL/min (>60); GLUCOSE,RANDOM 116 mg/dL (70-105); POTASSIUM 4.2 mmol/L (3.5-5.1); SODIUM SERUM 144 mmol/L (136-145); UREA NITROGEN, BLOOD 29 mg/dL (7-18)
[2021-05-03 05:12] LABS: LIPASE < 50 U/L (114-286)
[2021-05-03] MEDS ORDERED: MORPHINE 4 MG SYG IM ONE (08:30)
[2021-05-03] MEDS ORDERED: ONDANSETRON 4MG INJ IVP ONE (08:30)
[2021-05-03 10:54] VITALS: BP 135/74
[2021-05-03 11:18] LABS: CREATININE 1.4 mg/dL (0.5-1.5); POTASSIUM 3.8 mmol/L (3.5-5.1)
[2021-05-03 11:26] LABS: ALBUMIN 3.4 g/dL (3.5-5.0); BILIRUBIN,TOTAL 1.2 mg/dL (0.2-1.0); TOTAL PROTEIN, SERUM 7.1 g/dL (6.0-8.3)
[2021-05-20] MEDS ORDERED: ORPH100 PO (16:48)
[2021-05-22] MEDS ORDERED: METF-444 PO (01:03)
[2021-05-26] MEDS ORDERED: AEC81 PO (08:58)
[2021-05-26] MEDS ORDERED: LEVO750T46 PO (08:58)
[2021-05-26] MEDS ORDERED: DULO30CA52 PO (08:58)
[2021-05-26] MEDS ORDERED: SPIR25TA6 PO (09:23)
[2021-05-26] MEDS ORDERED: SACU1TAB PO (09:23)
[2021-05-26] MEDS ORDERED: ISOS30TA92 PO (09:23)
[2021-06-20] MEDS ORDERED: ORPH-43 PO (03:25)
[2021-06-20] MEDS ORDERED: LIDOP TP (03:25)
[2021-06-20] MEDS ORDERED: CEPH500B PO (03:26)
[2021-07-21] MEDS ORDERED: MACR100 PO (15:26)
[2021-07-21] MEDS ORDERED: PHEN-847 PO (15:26)
== END 2021-05-03 12:00 | disposition home or self-care (01) ==
LOC: EDH 04:23
DX: M54.50 Low back pain, unspecified (principal); E78.00 Pure hypercholesterolemia, unspecified; I11.0 Hypertensive heart disease with heart failure; I50.9 Heart failure, unspecified; E11.40 Type 2 diabetes mellitus with diabetic neuropathy, unspecified; F17.200 Nicotine dependence, unspecified, uncomplicated; Z88.1 Allergy status to other antibiotic agents; Z88.0 Allergy status to penicillin; Z88.6 Allergy status to analgesic agent; Z79.899 Other long term (current) drug therapy; Z90.49 Acquired absence of other specified parts of digestive tract
CPT/HCPCS: 36415; 71045; 80053; 83690; 83880; 84484; 85025; 93005; 96372; 96374; 99285; J2270; J2405; 80048

== ENCOUNTER 2021-07-08 22:48 | Emergency (ER) | payer MEDICAID ==
[~2021-07-08 22:48] MED LIST changes: +AEC81 PO; -BISA10SU61 RC; +CEPH500B PO; +DULO30CA52 PO; -GABA600T10 PO; +ISOS30TA92 PO; +LEVO750T46 PO; +LIDOP TP; +METF-444 PO; +ORPH-43 PO
[2021-07-08 23:14] LABS: BASOPHILS % (AUTO) 0.3 % (0.0-5.0); EOSINOPHILS % (AUTO) 0.2 % (0.0-8.0); HEMATOCRIT 42.8 % (36-48); LYMPHOCYTES % (AUTO) 5.9 % (21.0-51.0); MEAN CORPUSCULAR HEMOGLOBIN 27.3 pg (27.0-33.0); MEAN CORPUSCULAR HGB CONC 31.5 g/dL (32.0-36.0); MEAN CORPUSCULAR VOLUME 86.6 fL (79-99); MONOCYTES % (AUTO) 3.9 % (3.0-13.0); NEUTROPHILS % (AUTO) 89.3 % (40.0-77.0); PLATELET COUNT (AUTO) 196 K/uL (130-400); RED BLOOD CELL COUNT(AUTO) 4.94 MIL/uL (4.00-5.50); RED CELL DISTRIBUTION WIDTH 21.7 % (11.0-15.5); WHITE BLOOD COUNT (AUTO) 9.8 K/uL (4.8-10.8)
[2021-07-08 23:27] LABS: CARBON DIOXIDE 21 mmol/L (21-32); CHLORIDE 100 mmol/L (101-111); CREATININE 1.7 mg/dL (0.5-1.5); GLOMERULAR FILTR. RATE CALC 33 mL/min (>60); GLUCOSE,RANDOM 121 mg/dL (70-105); POTASSIUM 3.7 mmol/L (3.5-5.1); SODIUM SERUM 134 mmol/L (136-145); UREA NITROGEN, BLOOD 45 mg/dL (7-18)
[2021-07-08 23:31] LABS: ALANINE AMINOTRANSFERASE 7 U/L (12-78); ALBUMIN 2.5 g/dL (3.5-5.0); ASPARTATE AMINOTRANSFERASE 14 U/L (10-37); BILIRUBIN,TOTAL 1.5 mg/dL (0.2-1.0); TOTAL PROTEIN, SERUM 6.4 g/dL (6.0-8.3)
[2021-07-08] MEDS ORDERED: BISACODYL 10 MG SUPP.RECT RC ONE (23:31)
[2021-07-08 23:39] LABS: LIPASE < 50 U/L (114-286)
[2021-07-08 23:50] LABS: APPEARANCE,URINE Clear (CLEAR); BILIRUBIN,URINE Negative (NEGATIVE); COLOR,URINE Dark Yellow (YELLOW); GLUCOSE, URINE (UA) Negative (NEGATIVE); KETONES,URINE Trace mg/dL (NEGATIVE); LEUKOCYTE ESTERASE ,URINE Moderate (NEGATIVE); NITRATE,URINE Negative (NEGATIVE); OCCULT BLOOD,URINE Negative (NEGATIVE); PH,URINE 5.5 (5.0-8.0); PROTEIN,URINE Negative (NEGATIVE)
[2021-07-09] MEDS ORDERED: BISACODYL 10 MG SUPP.RECT RC ONE
[2021-07-09 00:23] LABS: BACTERIA,URINE Few /HPF (None Seen); RBC,URINE 0-1 /HPF (0-1); SQUAMOUS EPITHELIAL CELL,UR Moderate /HPF (0-2)
[2021-07-09] MEDS ORDERED: ACETAMINOPHEN 325 MG TAB ONE (00:50)
[2021-07-09 02:50] VITALS: BP 93/63
[2021-07-09] MEDS ORDERED: LINA72CA PO (04:38)
== END 2021-07-09 05:35 | disposition home or self-care (01) ==
LOC: EDH 22:48
DX: K59.00 Constipation, unspecified (principal); F11.20 Opioid dependence, uncomplicated; G89.29 Other chronic pain; M54.9 Dorsalgia, unspecified; I12.9 Hypertensive chronic kidney disease with stage 1 through stage 4 chronic kidney disease, or unspecified chronic kidney disease; E11.22 Type 2 diabetes mellitus with diabetic chronic kidney disease; N18.9 Chronic kidney disease, unspecified; I25.10 Atherosclerotic heart disease of native coronary artery without angina pectoris; M19.90 Unspecified osteoarthritis, unspecified site; E78.00 Pure hypercholesterolemia, unspecified; Z95.1 Presence of aortocoronary bypass graft; Z90.721 Acquired absence of ovaries, unilateral; Z88.0 Allergy status to penicillin; Z88.1 Allergy status to other antibiotic agents; Z88.6 Allergy status to analgesic agent; Z88.8 Allergy status to other drugs, medicaments and biological substances; Z79.82 Long term (current) use of aspirin; Z79.84 Long term (current) use of oral hypoglycemic drugs; Z79.899 Other long term (current) drug therapy
CPT/HCPCS: 36415; 80053; 81001; 83690; 83735; 85025; 87088